=== PATIENT | male | born 1965 | race Caucasian/White ===

== ENCOUNTER → 2020-02-04 10:59 | Outpatient (CLI) | payer OTHER, MEDICAID, SELFPAY ==
--- NOTE | 2020-02-04 | DI.RAD.S_ITS ---
PROCEDURE: XR KNEE RT 3V INDICATIONS: Knee pain TECHNIQUE: 3 views of the knee were acquired. COMPARISON: None. FINDINGS: Bones: No fractures or dislocations. No suspicious bony lesions. Mild tricompartmental knee joint degeneration. Soft tissues: No joint effusion. No suspicious soft tissue calcifications. IMPRESSION: Mild degenerative joint disease. Dictated by: Preston Dickerson M.D. on 02/04/2020 at 11:32 Approved by: Preston Dickerson M.D. on 02/04/2020 at 11:33
== END ==
PROVIDERS: PCP Student in an Organized Health Care Education/Training Program; Referring Provider Student in an Organized Health Care Education/Training Program; Visit Provider Student in an Organized Health Care Education/Training Program
DX: M25.561 Pain in right knee (principal); M17.11 Unilateral primary osteoarthritis, right knee
CPT/HCPCS: 73562

== ENCOUNTER → 2020-03-28 09:42 | Outpatient (CLI) | payer OTHER, MEDICAID, SELFPAY ==
[2020-03-29 10:38] LABS: COVID19 Sendout Not Detected (Not Detect)
== END ==
PROVIDERS: PCP Student in an Organized Health Care Education/Training Program; Visit Provider Physician Assistant
DX: Z01.812 Encounter for preprocedural laboratory examination (principal)
CPT/HCPCS: 87635

== ENCOUNTER 2020-03-31 09:58 | Day surgery (SDC) | payer OTHER, MEDICAID, SELFPAY ==
[2020-03-26 08:40] VITALS: BMI 29.7
[2020-03-31] VITALS (11 sets, daily range): BP systolic 133–182; BP diastolic 93–116; PULSE 60–75; RESP 11–28; TEMP 36.1–36.8; O2SAT 94–100; BMI 29.8
[2020-03-31] MEDS: LACTATED RINGERS 1,000 ML 100 ML IV (10:29)
--- NOTE | 2020-03-31 12:22 | PM.PREOP ---
Pre-operative Note COVID-19 COVID-19 status: Negative Result date/Date tested (Pos, Neg/Pending): 03/28/20 Interval Note History & Physical reviewed/Exam performed by Physician: Yes Changes to H&P: No
[2020-03-31] MEDS: CEFAZOLIN 2 GM/100 ML FROZ.PIGGY IV (12:50)
--- NOTE | 2020-03-31 13:07 | SUR.OPER ---
Supine on padded OR bed, head on pillow, arms secured on padded arm boards at <90 degrees abduction, legs uncrossed, safety belt at thigh, tape over blanket over lower legs.
[2020-03-31] MEDS: BUPIVACAINE 0.25% (PF) VIAL 30 ML INJ (13:11)
--- NOTE | 2020-03-31 14:04 | P.OP_ITS ---
Operative Date/Time/Diagnoses Date of procedure: 03/31/20 Time of procedure: 14:04 Pre-op diagnosis: Right inguinal hernia Post-op diagnosis: same Procedure & Clinicians Procedure: Open right inguinal hernia repair Same procedure as scheduled: Yes Indications: Symptomatic enlarging right inguinal hernia Surgeon: Jcarlos Monroe Yes if Unassisted: Yes Anesthesia Type: General Operative Notes Findings: Direct and indirect right inguinal hernia Procedure in detail: The patient was placed supine on the table and bilateral lower extremity compression devices were applied. Anesthesia was induced they were intubated with an LMA and received 2g of Ancef. A time-out was performed. They were prepped and draped in sterile fashion. The right external inguinal ring and the anterior superior iliac crest were identified and marked. 1 finger breath above the right inguinal ligament the skin was infiltrated with 0.25% bupivacaine. The skin incision was made here and the subcutaneous tissues were divided with electrocautery exposing the external oblique aponeurosis which was then opened along the direction of its fibers. The ilioinguinal nerve was identified on the anterior aspect of the cord and protected. Using a kittner cord was carefully dissected away from the inguinal canal adjacent to the pubic tubercle. The cord was freed and encircled with a Adolphus drain. A direct floor defect was identified. I identified the iliohypogastric nerve emerging through the medial aspect of the external oblique aparoneurosis. The cremasteric fibers surrounding the cord were divided using electrocautery. The vas deferens and the testicular vessels were preserved and protected. There was an indirect hernia on the anterior medial aspect of the cord which was skeletonized away from the vas deferens and testicular blood supply. The indirect hernia was skeletonized back to the internal ring and reduced spontaneously into the abdomen. A plug of Prolene mesh was placed into the floor defect and secured with Vicryl suture. I selected a 7x 15 cm lightweight Pro Loop hernia mesh. The inferior medial aspect of the mesh was anchored to the periosteum of the pubic tubercle such that there was approximately 2 cm of tubercle overlap with 0 Prolene and then was run continuously along the inferior edge of the mesh to the shelving edge of the inguinal ligament. Interrupted 3 0 Vicryl suture was used to anchor the superior aspect of the mesh to the conjoined tendon in several places. The tails were then reapproximated around the spermatic cord loosely. The tails of the mesh were then tucked under the external oblique aponeurosis. The repair was checked for hemostasis. The wound was irrigated with sterile saline. The external oblique aponeurosis was reapproximated in a running fashion using 3 0 Vicryl. The subcutaneous tissues were reapproximated with 3 0 Vicryl skin closed with 4 0 Monocryl followed by the application of Dermabond. At the end of the operation ensure that both testicles were within the scrotum. The sponge instrument count at the end operation was correct. The patient emerged from anesthesia was extubated and transferred to the postoperative care unit in stable condition. A total of 30 ml of of 0.25% bupivicaine was used to infiltrate the skin. Complications: none Post-operative Condition: stable Disposition: same day surgery
--- NOTE | 2020-03-31 14:20 | SUR.PHASEI ---
Dr. Weeks at bedside. Discussed elevated BP and patient's report that he has not taken his lisinopril in two days. Lisinopril order pending.
[2020-03-31] MEDS: lisinopriL 20 MG TABLET PO (15:02)
--- NOTE | 2020-03-31 15:13 | SUR.PHASEII ---
1505 Called into OR, reported BP and HR to Dr. Weeks and that pt states his normal diastolic BP is 100 (and that he feels that anxiety may be contributing factor). approved pt discharge at this time. IV dc'd, clothing given. Surg site CDI. Pt A&O, wants to go home. Stable and pleasant.
== END 2020-03-31 15:15 | disposition home or self-care (01) ==
PROVIDERS: PCP Student in an Organized Health Care Education/Training Program; Referring Provider Surgery; Visit Provider Surgery
PROC: (CPT 49505; principal; 2020-03-31 11:15)
DX: K40.90 Unilateral inguinal hernia, without obstruction or gangrene, not specified as recurrent (principal); I10 Essential (primary) hypertension
CPT/HCPCS: 49505; C1781; J0690; J1100; J1885; J2405; J2704; J3010

== ENCOUNTER → 2021-07-14 09:36 | Outpatient (CLI) | payer OTHER, MEDICAID, SELFPAY ==
--- NOTE | 2021-07-14 | DI.US.S_ITS ---
PROCEDURE: US ABDOMEN LIMITED INDICATIONS: ELEVATED LIVER ENZYMES. ATTENTION LIVER AND SPLEEN. TECHNIQUE: Real-time focused scanning was performed of the abdomen, with image documentation. COMPARISON: None. FINDINGS: The liver demonstrates mildly prominent size. The liver demonstrates generalized moderately increased echogenicity. This decreases ultrasound sensitivity for detection of hepatic masses. No findings of gallstones or sludge are seen. The gallbladder wall is not thickened, measuring 3 mm or less. No specific pericholecystic fluid is seen. The sonographic Menendez sign is negative. The biliary ducts and the pancreas are not well seen. The spleen appears within normal limits, measuring 10.5 cm in length. IMPRESSION: The liver demonstrates increased echogenicity. This finding is nonspecific, yet it is most commonly attributed to fatty infiltration. No significant splenic abnormality is seen. Unremarkable gallbladder by ultrasound. Limited evaluation of the biliary ducts and the pancreas. Dictated by: Delta French M.D. on 07/14/2021 at 12:11 Approved by: Delta French M.D. on 07/14/2021 at 12:13
== END ==
PROVIDERS: PCP Student in an Organized Health Care Education/Training Program; Referring Provider Student in an Organized Health Care Education/Training Program; Visit Provider Student in an Organized Health Care Education/Training Program
DX: R74.8 Abnormal levels of other serum enzymes (principal)
CPT/HCPCS: 76705

== ENCOUNTER → 2022-01-24 11:20 | Outpatient (CLI) | payer OTHER, MEDICAID, SELFPAY ==
[2022-01-24 13:11] LABS: COVID19 -Nasal RAPID Negative (Negative)
== END ==
PROVIDERS: PCP Student in an Organized Health Care Education/Training Program; Visit Provider Family Medicine Sleep Medicine
DX: Z20.822 Contact with and (suspected) exposure to COVID-19 (principal)
CPT/HCPCS: 87635; C9803

== ENCOUNTER 2022-01-25 14:05 | Day surgery (SDC) | payer OTHER, MEDICAID, SELFPAY ==
--- NOTE | 2022-01-25 12:37 | PM.HP.1 ---
History of Present Illness History of Present Illness Date Patient Seen: 01/25/22 Chief complaint: SDC Narrative: 56 year old male comes in today for consideration of a screening colonoscopy. There have been no lower GI symptoms suggesting disease such as change in bowel habits, bleeding, abdominal pain or anemia. There's been no family history of colon cancer or colon polyps. Overall health issues have been stable, including no major cardiac events for at least 6 weeks. PCP: Dr. Borjas Past Medical History: PSORIASIS PAIN, FOOT, RIGHT ALLERGY ROSACEA Hypertension Hyperlipidemia Ingrown toenail Past Surgical History: none Family History: Adopted Social History: Marital Status: Single Occupation: Moved from [place] over a decade ago, currently unemployed. I manage my money but need to get into a regular job. History of heavy drinking, nothing recently. Patient History Medical History (Updated 09/13/21 @ 07:35 by RAFAELA Mccain) Anxiety Eczema HTN (hypertension) Psoriasis Surgical History (Updated 01/25/22 @ 14:41 by Margoth Galeano RN) H/O right inguinal hernia repair Family & Social History Social History: household members none Tobacco & Substance use: Smoking Status Never smoker alcohol intake former Substance Use Type does not use Meds Home Medications and Allergies Home Medications Medication Instructions Recorded Confirmed Type lisinopril 40 mg tablet 40 mg PO DAILY 01/25/22 01/25/22 History Allergies Allergy/AdvReac Type Severity Reaction Status Date / Time chicken derived Allergy Intermediate Hives, Verified 01/25/22 14:37 swelling, turkey AdvReac Intermediate Vomiting, Verified 01/25/22 14:37 Hives, swelling Review of Systems Review of Systems Narrative: All remaining ROS were reviewed and negative except as addressed. Exam Narrative Exam Narrative: GENERAL: Alert and oriented, appearing stated age and in no acute distress. HEENT: Head normocephalic/atraumatic. Extraocular movements intact. LUNGS: Clear to ausculation bilaterally, no wheezes, rhonchi or rales. CV: Normal S1 and S2 with regular rate and rhythm, no audible murmurs, rubs or gallops. ABDOMEN: Soft, non-tender, non-distended, no organomegaly. Positive bowel sounds. EXTREMITIES: No clubbing, cyanosis, or edema. NEURO: Cranial nerves II through XII grossly intact, no focal deficits. PSYCH: Alert and oriented x 3. SKIN: No concerning lesions. Assessment & Plan Assessment & Plan narrative: 1. Screening for colon cancer Plan for colonoscopy. The nature and character of the procedure as well as anticipated results were discussed. The possibility of not completing the procedure was also discussed. Possible complications including aspiration pneumonia, bleeding, perforation and reaction to medications either for sedation or preparation and missed lesions were discussed. Questions were answered and proceeding to the colonoscopy was elected. Informed consent signed. I sincerely appreciate the referral allowing me to participate in this patient's care. Please contact me with any questions or concerns.
--- NOTE | 2022-01-25 12:40 | PM.OP.COLON ---
Operative Date/Time/Diagnoses Date of procedure: 01/25/22 Procedure Notes SCOAP/Timeout: 3:31 p.m. Procedure in detail: ENDOSCOPIST: Tamika Borjas MD Sedation RN: Pallavi Bowie RN Sedation start time: 3:32 p.m. Sedation end time: 3:44 p.m. PROCEDURE: Colonoscopy INDICATIONS: 1. Screening for colon cancer MEDICATION: Levsin 0.125 mg sublingual, incremental doses of Versed and fentanyl until appropriate level sedation achieved. ASA CLASS: 2 CECAL WITHDRAWAL TIME: 6 minutes COMPLICATIONS: None. EXTENT OF PROCEDURE: Cecum. QUALITY OF PREP: Good with portions of liquid stool. PROCEDURE: Prior to insertion of the colonoscope, a digital rectal examination was accomplished with circumferential palpation of the distal rectal mucosa without significant findings being noted. The high-definition colonoscope was passed into the rectum in the usual fashion and advanced over to the cecum without difficulty. The ileocecal valve, appendiceal stoma, and medial wall all could be inspected and no abnormalities were seen. ASCENDING COLON: As the colonoscope was withdrawn, care was taken to expose and inspect the haustral folds and no abnormalities were seen. HEPATIC FLEXURE: Normal, no polyps, diverticula or other abnormalities. TRANSVERSE COLON: Normal, no polyps, diverticula or other abnormalities. DESCENDING COLON: Normal, no polyps, diverticula or other abnormalities. SIGMOID COLON: Normal, no polyps, diverticula or other abnormalities. RECTUM: Normal. J maneuver was produced. There was no significant perianal disease. The J maneuver was broken. The remainder of the rectum was inspected and there was no external hemorrhoid disease. The scope was withdrawn. IMPRESSION: 1. Normal colonoscopy PLAN: 1. Repeat colonoscopy in 10 years. The possibility of a missed lesion including a malignancy has been discussed with the patient previously. Potential alarm symptoms have been discussed and should be reported immediately.
[2022-01-25 14:20] VITALS: BMI 30.5
[2022-01-25] MEDS: LACTATED RINGERS 1,000 ML 200 ML IV (14:28)
[2022-01-25] MEDS: HYOSCYAMINE 0.125 MG TABLET PO (14:28)
[2022-01-25 14:30] VITALS: BP 157/100; PULSE 65; RESP 16; TEMP 36.6; O2SAT 98
[2022-01-25] MEDS: fentaNYL 250 MCG/5 ML INJ 150 MCG IV (15:52)
[2022-01-25 15:53] VITALS: BP 110/83; PULSE 78; RESP 12; TEMP 36.8; O2SAT 92
[2022-01-25] MEDS: MIDAZOLAM 5 MG/5 ML VIAL 6 MG IV (15:55)
[2022-01-25 15:58] VITALS: BP 119/83; PULSE 68; RESP 12; O2SAT 93
[2022-01-25 16:04] VITALS: BP 115/86; PULSE 65; RESP 12; O2SAT 95
== END 2022-01-25 16:17 | disposition home or self-care (01) ==
PROVIDERS: PCP Student in an Organized Health Care Education/Training Program; Referring Provider Student in an Organized Health Care Education/Training Program; Visit Provider Student in an Organized Health Care Education/Training Program
PROC: 0DJD8ZZ Inspection of Lower Intestinal Tract, Via Natural or Artificial Opening Endoscopic (ICD-10-PCS; CPT 45378; principal; 2022-01-25 15:15)
DX: Z12.11 Encounter for screening for malignant neoplasm of colon (principal)
CPT/HCPCS: 45378; J2250; J3010

== ENCOUNTER → 2022-02-09 09:08 | Outpatient (CLI) | payer OTHER, MEDICAID, SELFPAY ==
--- NOTE | 2022-02-09 | DI.RAD.S_ITS ---
PROCEDURE: XR CERVICAL SPINE 2V OR 3V INDICATIONS: NECK PAIN TECHNIQUE: 3 view(s) of the cervical spine were acquired. COMPARISON: None. FINDINGS: Bones: No fractures or dislocations to the C7-T1 level. The lateral masses of C1 appear intact on the odontoid view. No suspicious bony lesions. Moderate to severe disc space narrowing is present C6-7, mild to moderate C5-6. Bridging anterior osteophytes are present at this level. Multilevel uncovertebral hypertrophy are present. Soft tissues: No prevertebral soft tissue swelling. IMPRESSION: Degenerative changes most notable at C5-6 and C6-7. Dictated by: Kathrine Keita M.D. on 02/09/2022 at 17:25 Approved by: Kathrine Keita M.D. on 02/09/2022 at 17:26
== END ==
PROVIDERS: PCP Student in an Organized Health Care Education/Training Program; Referring Provider Student in an Organized Health Care Education/Training Program; Visit Provider Student in an Organized Health Care Education/Training Program
DX: M54.2 Cervicalgia (principal); M47.812 Spondylosis without myelopathy or radiculopathy, cervical region
CPT/HCPCS: 72040

== ENCOUNTER 2022-05-12 14:30 | Outpatient (RCR) | payer OTHER, MEDICAID, SELFPAY ==
--- NOTE | 2022-04-05 16:00 | PT.OIE ---
Current Diagnoses Cervicalgia (04/05/22) Past Medical History (Last Updated 03/30/20 @ 12:57 by Piedad Boone, NAKUL) Anxiety Eczema HTN (hypertension) Psoriasis Past Surgical History (Last Updated 01/25/22 @ 14:41 by Margoth Galeano RN) H/O right inguinal hernia repair Visit Care Team Role Provider Type Tamika Borjas MD Attending Provider Physician Primary Care Provider Referring Provider Specialty: [facility] Address: [address] [place] [address], [facility] [place], [facility] Email: [email or web address] Physical Therapy Initial Evaluation PT-OP-A Visit Information Start: 04/05/22 07:28 Freq: Status: Active Protocol: Document 04/05/22 13:03 AMB (Rec: 04/05/22 13:19 AMB [id number]) Out-Patient Physical Therapy Visit Information Visit Information Visit Type Initial Evaluation Visit Start Time 13:00 Visit Stop Time 13:45 Total Visit Minutes 45 Visit Number 1 PT-OP-B Current Condition Start: 04/05/22 07:28 Freq: Status: Active Protocol: Document 04/05/22 13:03 AMB (Rec: 04/05/22 13:19 AMB [id number]) Current Condition History of Current Condition Onset Date October Current Complaints neck pain History of Current Condition Rebuild [facility] in October and that worsened chronic neck pain. Stiffness in neck with rotation and sleeping are a big problem. Does have a history of shoulder separation years ago, but denies numbness/tingling/radiating sx . Did have an X-ray in January, shows Degenerative changes most notable at C5-6 and C6-7. - moderate to severe at C6-C7 . Prior Functional Status Baseline Function- ADL's Independent Baseline Function- Mobility Independent Current Functional Impairments (Reported) Functional Limitations- ADL's limited sleeping, driving, reading, watching TV Personal Factors Other Personal Factors That May Effect Hypertension, back pain, Therapy/Recovery history R shoulder separation PT-OP-C Subjective Start: 04/05/22 07:28 Freq: Status: Active Protocol: Document 04/05/22 13:00 AMB (Rec: 04/06/22 07:30 AMB [id number]) Patient Questionnaires Neck Disability Index NDI Score 13 Neck Disability Index Impairment 20 to 39% Impaired (Score 10- 19) Quick Dash- Upper Extremity Quick Dash UE Score 11 Quick Dash UE Impairment 1 to 19% Impaired (Score 1-19) OP-PT Pain Assessment Comments Pain Comments 4/10 upper neck pain PT-OP-J Posture/Palpation/Skin Start: 04/05/22 07:28 Freq: Status: Active Protocol: Document 04/05/22 13:00 AMB (Rec: 04/06/22 07:30 AMB [id number]) Posture Evaluation Comments Posture Comments forward shoulders, significant forward head Palpation Assessment Location One Palpation Location neck Palpation Findings Soft Tissue Tightness,Spasm, Muscle Guarding,Tenderness Palpation Details tension at R UT with R rotation, subocciptial muscle spasm PT-OP-K Range of Motion Start: 04/05/22 07:28 Freq: Status: Active Protocol: Document 04/05/22 13:00 AMB (Rec: 04/06/22 07:30 AMB [id number]) Cervical Spine Range of Motion Cervical Spine Active Degrees Testing Position Sitting Flexion 70 Extension 60 Rotation Left 72 Rotation Right 45 Lateral Flexion Left 40 Lateral Flexion Right 40 PT-OP-M Strength Start: 04/05/22 07:28 Freq: Status: Active Protocol: Document 04/05/22 13:00 AMB (Rec: 04/06/22 07:30 AMB [id number]) Shoulder Strength Shoulder Manual Muscle Testing Right Comments WFL, film numberer strength WFL PT-OP-T Assessment and Plan Start: 04/05/22 07:28 Freq: Status: Active Protocol: Document 04/05/22 13:00 AMB (Rec: 04/06/22 07:30 AMB [id number]) Physical Therapy Assessment Rehab Potential Rehabilitation Potential Good Evaluation Complexity Number of Personal Factors/Comorbidities 1-2 Number of Body Systems Impaired 4 or More Clinical Presentation at Evaluation Stable Impairments Impairments Functional Activities,Pain, Posture,ROM Goals Two Impairment Pain Short Term Goal (STG) Messi will sleep for 6 hours without waking due to neck pain. STG Duration 4 weeks [employer] Goal (LTG) Messi will work on his laptop for 1 hour with 2/10 neck pain or less. LTG Duration 8 weeks One Impairment ROM Short Term Goal (STG) Messi will improve his cervical rotation right to 60 degrees. STG Duration 4 weeks [employer] Goal (LTG) Messi will turn his head while driving without an increase in neck pain. LTG Duration 8 weeks Assessment Summary Assessment Messi attends physical therapy with restricted right cervical rotation 7 months s/p deck renovation that increased his neck pain, especially with ended positions like watching TV, working on the laptop, and sleeping. He has known degeneration worst at C6-7 seen on recent X-ray but does not have radiating symptoms. He has poor posture and will benefit from physical therapy for manual therapy, strengthening and stretching so that he can attain better posture to put less strain on his cervical spine. Physical Therapy Plan Frequency and Duration Frequency of Treatment 2x/Week Duration of Treatment 8 weeks Plan of Care Start Date 04/05/22 Plan of Care End Date 05/31/22 Therapeutic Interventions Therapeutic Interventions Home Exercise Program,Joint Mobilizations,Manual Therapy, Neuromuscular Re-education, Self-Care/Home Management,Soft Tissue Mobilization, Therapeutic Activities, Therapeutic Exercises Modalities Cold Pack/Ice Massage,Electric Stimulation,Hot Packs, Vasopneumatic Devices Next Visit Focus/Plan Next Note Type Treatment Note Next Visit Plan Review sleep positioning education/ body mechanics. Progress manual therapy for R cervical rotation ROM. Chin tucks, pec stretch to promote improved posture.
--- NOTE | 2022-04-05 16:00 | PT.OPPOC ---
Physical, Occupational & Speech Therapy At [facility] Current Diagnoses Cervicalgia (04/05/22) Visit Care Team Role Provider Type Tamika Borjas MD Attending Provider Physician Primary Care Provider Referring Provider Specialty: Family Practice Address: [address] [place] [address], [facility] [place], [address] Email: [email or web address] Plan Of Care PT-OP-T Assessment and Plan Start: 04/05/22 07:28 Freq: Status: Active Protocol: Document 04/05/22 13:00 AMB (Rec: 04/06/22 07:30 AMB [id number]) Physical Therapy Assessment Rehab Potential Rehabilitation Potential Good Evaluation Complexity Number of Personal Factors/Comorbidities 1-2 Number of Body Systems Impaired 4 or More Clinical Presentation at Evaluation Stable Impairments Impairments Functional Activities,Pain, Posture,ROM Goals Two Impairment Pain Short Term Goal (STG) Messi will sleep for 6 hours without waking due to neck pain. STG Duration 4 weeks [facility] Goal (LTG) Messi will work on his laptop for 1 hour with 2/10 neck pain or less. LTG Duration 8 weeks One Impairment ROM Short Term Goal (STG) Messi will improve his cervical rotation right to 60 degrees. STG Duration 4 weeks [facility] Goal (LTG) Messi will turn his head while driving without an increase in neck pain. LTG Duration 8 weeks Assessment Summary Assessment Messi attends physical therapy with restricted right cervical rotation 7 months s/p deck renovation that increased his neck pain, especially with ended positions like watching TV, working on the laptop, and sleeping. He has known degeneration worst at C6-7 seen on recent X-ray but does not have radiating symptoms. He has poor posture and will benefit from physical therapy for manual therapy, strengthening and stretching so that he can attain better posture to put less strain on his cervical spine. Physical Therapy Plan Frequency and Duration Frequency of Treatment 2x/Week Duration of Treatment 8 weeks Plan of Care Start Date 04/05/22 Plan of Care End Date 05/31/22 Therapeutic Interventions Therapeutic Interventions Home Exercise Program,Joint Mobilizations,Manual Therapy, Neuromuscular Re-education, Self-Care/Home Management,Soft Tissue Mobilization, Therapeutic Activities, Therapeutic Exercises Modalities Cold Pack/Ice Massage,Electric Stimulation,Hot Packs, Vasopneumatic Devices Next Visit Focus/Plan Next Note Type Treatment Note Next Visit Plan Review sleep positioning education/ body mechanics. Progress manual therapy for R cervical rotation ROM. Ricky mccraryckbarb, pec stretch to promote improved posture. Plan of Care Dates Plan of Care Start Date 04/05/22 Plan of Care End Date 05/31/22 Electronically Signed by: Rosi Kiran, JESS 04/06/22 0813 If you are in agreement with this Plan of Care, please return a signed and dated copy. I have reviewed this Plan of Care and certify that the skilled therapy services above are required to meet the patient?s needs. Physician Signature Date Printed Name and Credentials Clinical Instructor Signature Printed Name and Credentials
--- NOTE | 2022-04-08 13:18 | PT.OTN ---
Current Diagnoses Cervicalgia (04/08/22) Physical Therapy Treatment Note PT-OP-A Visit Information Start: 04/05/22 07:28 Freq: Status: Active Protocol: Document 04/08/22 09:00 AMB (Rec: 04/08/22 09:47 AMB [id number]) Out-Patient Physical Therapy Visit Information Visit Information Visit Type Treatment Note Visit Start Time 09:00 Visit Stop Time 09:45 Total Visit Minutes 45 Visit Number 2 PT-OP-B Current Condition Start: 04/05/22 07:28 Freq: Status: Active Protocol: Document 04/05/22 13:03 AMB (Rec: 04/05/22 13:19 AMB [id number]) Current Condition History of Current Condition Onset Date October Current Complaints neck pain History of Current Condition Rebuild deck in October and that worsened chronic neck pain. Stiffness in neck with rotation and sleeping are a big problem. Does have a history of shoulder seperation years ago, but denies numbness/tingling/radiating sx . Did have an X-ray in January, shows Degenerative changes most notable at C5-6 and C6-7. - moderate to severe at C6-C7 . Prior Functional Status Baseline Function- ADL's Independent Baseline Function- Mobility Independent Current Functional Impairments (Reported) Functional Limitations- ADL's limited sleeping, driving, reading, watching TV Personal Factors Other Personal Factors That May Effect Hypertension, back pain, Therapy/Recovery history R shoulder separation PT-OP-C Subjective Start: 04/05/22 07:28 Freq: Status: Active Protocol: Document 04/08/22 09:00 AMB (Rec: 04/08/22 09:47 AMB [id number]) OP-PT Subjective Patient Comments Patient Comments Messi is pretty stiff this morning. PT-OP-J Posture/Palpation/Skin Start: 04/05/22 07:28 Freq: Status: Active Protocol: Document 04/05/22 13:00 AMB (Rec: 04/06/22 07:30 AMB [id number]) Posture Evaluation Comments Posture Comments forward shoulders, significant forward head Palpation Assessment Location One Palpation Location neck Palpation Findings Soft Tissue Tightness,Spasm, Muscle Guarding,Tenderness Palpation Details tension at R UT with R rotation, subocciptial muscle spasm PT-OP-K Range of Motion Start: 04/05/22 07:28 Freq: Status: Active Protocol: Document 04/05/22 13:00 AMB (Rec: 04/06/22 07:30 AMB [id number]) Cervical Spine Range of Motion Cervical Spine Active Degrees Testing Position Sitting Flexion 70 Extension 60 Rotation Left 72 Rotation Right 45 Lateral Flexion Left 40 Lateral Flexion Right 40 PT-OP-M Strength Start: 04/05/22 07:28 Freq: Status: Active Protocol: Document 04/05/22 13:00 AMB (Rec: 04/06/22 07:30 AMB [id number]) Shoulder Strength Shoulder Manual Muscle Testing Right Comments WFL, 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 strength WFL PT-OP-Q Treatments Start: 04/05/22 07:28 Freq: Status: Active Protocol: Document 04/08/22 09:00 AMB (Rec: 04/08/22 09:47 AMB [id number]) Therapeutic Exercises Supine Exercises chin tuck Reps/Minutes 5x5 Sitting Exercises UT stretch Reps/Minutes 30x2 Standing Exercises corner pec stretch Side bilateral Reps/Minutes 30x4 Manual Therapy Treatment Soft Tissue Mobilization suboccipital release Body Location neck Joint Mobilizations MWM right rotation Joint neck Other Other Manual Treatments contract relax cervical rotation (R) PT-OP-T Assessment and Plan Start: 04/05/22 07:28 Freq: Status: Active Protocol: Document 04/08/22 09:00 AMB (Rec: 04/08/22 09:47 AMB [id number]) Physical Therapy Assessment Goals Two Impairment Pain Short Term Goal (STG) Messi will sleep for 6 hours without waking due to neck pain. STG Duration 4 weeks Senior Living Goal (LTG) Messi will work on his laptop for 1 hour with 2/10 neck pain or less. LTG Duration 8 weeks One Impairment ROM Short Term Goal (STG) Messi will improve his cervical rotation right to 60 degrees. STG Duration 4 weeks Senior Living Goal (LTG) Messi will turn his head while driving without an increase in neck pain. LTG Duration 8 weeks Assessment Summary Assessment Messi did well with PT, did have some stiffness to begin with, but ROM improved throughout session. Physical Therapy Plan Next Visit Focus/Plan Next Note Type Treatment Note Next Visit Plan Review chin tucks, pec stretch , cervical rotation, consider UBE for warm up
--- NOTE | 2022-04-15 09:45 | PT.OTN ---
Current Diagnoses Cervicalgia (04/15/22) Physical Therapy Treatment Note PT-OP-A Visit Information Start: 04/05/22 07:28 Freq: Status: Active Protocol: Document 04/15/22 09:01 AMB (Rec: 04/15/22 09:45 AMB [id number]) Out-Patient Physical Therapy Visit Information Visit Information Visit Type Treatment Note Visit Start Time 09:00 Visit Stop Time 09:45 Total Visit Minutes 45 Visit Number 3 PT-OP-B Current Condition Start: 04/05/22 07:28 Freq: Status: Active Protocol: Document 04/05/22 13:03 AMB (Rec: 04/05/22 13:19 AMB [id number]) Current Condition History of Current Condition Onset Date October Current Complaints neck pain History of Current Condition Rebuild deck in October and that worsened chronic neck pain. Stiffness in neck with rotation and sleeping are a big problem. Does have a history of shoulder seperation years ago, but denies numbness/tingling/radiating sx . Did have an X-ray in January, shows Degenerative changes most notable at C5-6 and C6-7. - moderate to severe at C6-C7 . Prior Functional Status Baseline Function- ADL's Independent Baseline Function- Mobility Independent Current Functional Impairments (Reported) Functional Limitations- ADL's limited sleeping, driving, reading, watching TV Personal Factors Other Personal Factors That May Effect Hypertension, back pain, Therapy/Recovery history R shoulder separation PT-OP-C Subjective Start: 04/05/22 07:28 Freq: Status: Active Protocol: Document 04/15/22 09:01 AMB (Rec: 04/15/22 09:45 AMB [id number]) OP-PT Subjective Patient Comments Patient Comments Did feel a bit of soreness after last visit for about a half an hour PT-OP-J Posture/Palpation/Skin Start: 04/05/22 07:28 Freq: Status: Active Protocol: Document 04/05/22 13:00 AMB (Rec: 04/06/22 07:30 AMB [id number]) Posture Evaluation Comments Posture Comments forward shoulders, significant forward head Palpation Assessment Location One Palpation Location neck Palpation Findings Soft Tissue Tightness,Spasm, Muscle Guarding,Tenderness Palpation Details tension at R UT with R rotation, subocciptial muscle spasm PT-OP-K Range of Motion Start: 04/05/22 07:28 Freq: Status: Active Protocol: Document 04/05/22 13:00 AMB (Rec: 04/06/22 07:30 AMB [id number]) Cervical Spine Range of Motion Cervical Spine Active Degrees Testing Position Sitting Flexion 70 Extension 60 Rotation Left 72 Rotation Right 45 Lateral Flexion Left 40 Lateral Flexion Right 40 PT-OP-M Strength Start: 04/05/22 07:28 Freq: Status: Active Protocol: Document 04/05/22 13:00 AMB (Rec: 04/06/22 07:30 AMB [id number]) Shoulder Strength Shoulder Manual Muscle Testing Right Comments WFL, meals on wheels driver strength WFL PT-OP-Q Treatments Start: 04/05/22 07:28 Freq: Status: Active Protocol: Document 04/15/22 09:01 AMB (Rec: 04/15/22 09:45 AMB [id number]) Cardio Equipment Recumbent Elliptical ([employer]) Duration (Minutes) 10 Resistance 5 Therapeutic Exercises Supine Exercises chin tuck Reps/Minutes 5x5 Sidelying Exercises open book Reps/Minutes 10x2 Sitting Exercises UT stretch Reps/Minutes 30x2 Standing Exercises corner pec stretch Side bilateral Reps/Minutes 30x4 Manual Therapy Treatment Soft Tissue Mobilization suboccipital release Body Location neck Joint Mobilizations MWM right rotation Joint neck PT-OP-T Assessment and Plan Start: 04/05/22 07:28 Freq: Status: Active Protocol: Document 04/15/22 09:01 AMB (Rec: 04/15/22 09:45 AMB [id number]) Physical Therapy Assessment Goals Two Impairment Pain Short Term Goal (STG) Messi will sleep for 6 hours without waking due to neck pain. STG Duration 4 weeks Plain Clothes Police Officer Goal (LTG) Messi will work on his laptop for 1 hour with 2/10 neck pain or less. LTG Duration 8 weeks One Impairment ROM Short Term Goal (STG) Messi will improve his cervical rotation right to 60 degrees. STG Duration 4 weeks Plain Clothes Police Officer Goal (LTG) Messi will turn his head while driving without an increase in neck pain. LTG Duration 8 weeks Assessment Summary Assessment Messi did well with open book, better with chin tuck today. Better range after manual. Physical Therapy Plan Next Visit Focus/Plan Next Note Type Treatment Note Next Visit Plan Review chin tucks, pec stretch , cervical rotation, consider UBE for warm up
--- NOTE | 2022-04-18 15:42 | PT.OTN ---
Current Diagnoses Cervicalgia (04/18/22) Physical Therapy Treatment Note PT-OP-A Visit Information Start: 04/05/22 07:28 Freq: Status: Active Protocol: Document 04/18/22 13:49 AMB (Rec: 04/18/22 14:35 AMB [id number]) Out-Patient Physical Therapy Visit Information Visit Information Visit Type Treatment Note Visit Start Time 13:45 Visit Stop Time 14:30 Total Visit Minutes 45 Visit Number 4 PT-OP-B Current Condition Start: 04/05/22 07:28 Freq: Status: Active Protocol: Document 04/05/22 13:03 AMB (Rec: 04/05/22 13:19 AMB [id number]) Current Condition History of Current Condition Onset Date October Current Complaints neck pain History of Current Condition Rebuild deck in October and that worsened chronic neck pain. Stiffness in neck with rotation and sleeping are a big problem. Does have a history of shoulder seperation years ago, but denies numbness/tingling/radiating sx . Did have an X-ray in January, shows Degenerative changes most notable at C5-6 and C6-7. - moderate to severe at C6-C7 . Prior Functional Status Baseline Function- ADL's Independent Baseline Function- Mobility Independent Current Functional Impairments (Reported) Functional Limitations- ADL's limited sleeping, driving, reading, watching TV Personal Factors Other Personal Factors That May Effect Hypertension, back pain, Therapy/Recovery history R shoulder separation PT-OP-C Subjective Start: 04/05/22 07:28 Freq: Status: Active Protocol: Document 04/18/22 13:49 AMB (Rec: 04/18/22 14:35 AMB [id number]) OP-PT Subjective Patient Comments Patient Comments Feeling overall mildly better, has been doing HEP PT-OP-J Posture/Palpation/Skin Start: 04/05/22 07:28 Freq: Status: Active Protocol: Document 04/05/22 13:00 AMB (Rec: 04/06/22 07:30 AMB [id number]) Posture Evaluation Comments Posture Comments forward shoulders, significant forward head Palpation Assessment Location One Palpation Location neck Palpation Findings Soft Tissue Tightness,Spasm, Muscle Guarding,Tenderness Palpation Details tension at R UT with R rotation, subocciptial muscle spasm PT-OP-K Range of Motion Start: 04/05/22 07:28 Freq: Status: Active Protocol: Document 04/05/22 13:00 AMB (Rec: 04/06/22 07:30 AMB [id number]) Cervical Spine Range of Motion Cervical Spine Active Degrees Testing Position Sitting Flexion 70 Extension 60 Rotation Left 72 Rotation Right 45 Lateral Flexion Left 40 Lateral Flexion Right 40 PT-OP-M Strength Start: 04/05/22 07:28 Freq: Status: Active Protocol: Document 04/05/22 13:00 AMB (Rec: 04/06/22 07:30 AMB [id number]) Shoulder Strength Shoulder Manual Muscle Testing Right Comments WFL, 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 control 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 strength WFL PT-OP-Q Treatments Start: 04/05/22 07:28 Freq: Status: Active Protocol: Document 04/18/22 13:49 AMB (Rec: 04/18/22 14:35 AMB [id number]) Therapeutic Exercises Supine Exercises chin tuck Reps/Minutes 5x5 Sidelying Exercises open book Reps/Minutes 10x2 Sitting Exercises UT stretch Reps/Minutes 30x2 Other Exercises cat cow Reps/Minutes 10 thread the needle Reps/Minutes 10 Manual Therapy Treatment Soft Tissue Mobilization suboccipital release Body Location neck Comments 10 min Joint Mobilizations MWM right rotation Joint neck Reps/Duration 3x10 PT-OP-T Assessment and Plan Start: 04/05/22 07:28 Freq: Status: Active Protocol: Document 04/18/22 13:49 AMB (Rec: 04/18/22 14:35 AMB [id number]) Physical Therapy Assessment Goals Two Impairment Pain Short Term Goal (STG) Messi will sleep for 6 hours without waking due to neck pain. STG Duration 4 weeks Desk Reporter Goal (LTG) Messi will work on his laptop for 1 hour with 2/10 neck pain or less. LTG Duration 8 weeks One Impairment ROM Short Term Goal (STG) Messi will improve his cervical rotation right to 60 degrees. STG Duration 4 weeks Desk Reporter Goal (LTG) Messi will turn his head while driving without an increase in neck pain. LTG Duration 8 weeks Assessment Summary Assessment Pt did well with thread the needle. Is focused on getting a HEP to manage this condition in the nursing home. Physical Therapy Plan Next Visit Focus/Plan Next Note Type Treatment Note Next Visit Plan Review chin tucks, pec stretch , cervical rotation, consider cervical stabilization next visit
--- NOTE | 2022-04-20 15:57 | PT.OTN ---
Current Diagnoses Cervicalgia (04/20/22) Physical Therapy Treatment Note PT-OP-A Visit Information Start: 04/05/22 07:28 Freq: Status: Active Protocol: Document 04/20/22 09:49 AMB (Rec: 04/20/22 10:31 AMB [id number]) Out-Patient Physical Therapy Visit Information Visit Information Visit Type Treatment Note Visit Start Time 09:45 Visit Stop Time 10:30 Total Visit Minutes 45 Visit Number 5 PT-OP-B Current Condition Start: 04/05/22 07:28 Freq: Status: Active Protocol: Document 04/05/22 13:03 AMB (Rec: 04/05/22 13:19 AMB [id number]) Current Condition History of Current Condition Onset Date October Current Complaints neck pain History of Current Condition Rebuild deck in October and that worsened chronic neck pain. Stiffness in neck with rotation and sleeping are a big problem. Does have a history of shoulder seperation years ago, but denies numbness/tingling/radiating sx . Did have an X-ray in January, shows Degenerative changes most notable at C5-6 and C6-7. - moderate to severe at C6-C7 . Prior Functional Status Baseline Function- ADL's Independent Baseline Function- Mobility Independent Current Functional Impairments (Reported) Functional Limitations- ADL's limited sleeping, driving, reading, watching TV Personal Factors Other Personal Factors That May Effect Hypertension, back pain, Therapy/Recovery history R shoulder separation PT-OP-C Subjective Start: 04/05/22 07:28 Freq: Status: Active Protocol: Document 04/20/22 09:45 AMB (Rec: 04/20/22 15:56 AMB [id number]) OP-PT Subjective Patient Comments Patient Comments Pt was a bit sore on the right side of ht eneck after last visit. PT-OP-J Posture/Palpation/Skin Start: 04/05/22 07:28 Freq: Status: Active Protocol: Document 04/05/22 13:00 AMB (Rec: 04/06/22 07:30 AMB [id number]) Posture Evaluation Comments Posture Comments forward shoulders, significant forward head Palpation Assessment Location One Palpation Location neck Palpation Findings Soft Tissue Tightness,Spasm, Muscle Guarding,Tenderness Palpation Details tension at R UT with R rotation, subocciptial muscle spasm PT-OP-K Range of Motion Start: 04/05/22 07:28 Freq: Status: Active Protocol: Document 04/05/22 13:00 AMB (Rec: 04/06/22 07:30 AMB [id number]) Cervical Spine Range of Motion Cervical Spine Active Degrees Testing Position Sitting Flexion 70 Extension 60 Rotation Left 72 Rotation Right 45 Lateral Flexion Left 40 Lateral Flexion Right 40 PT-OP-M Strength Start: 04/05/22 07:28 Freq: Status: Active Protocol: Document 04/05/22 13:00 AMB (Rec: 04/06/22 07:30 AMB [id number]) Shoulder Strength Shoulder Manual Muscle Testing Right Comments 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, 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 strength WFL PT-OP-Q Treatments Start: 04/05/22 07:28 Freq: Status: Active Protocol: Document 04/20/22 09:45 AMB (Rec: 04/20/22 15:56 AMB [id number]) Therapeutic Exercises Supine Exercises chin tuck Reps/Minutes 5x5 Sitting Exercises UT stretch Reps/Minutes 30x2 Other Exercises I,Y Other Exercise Name chest on t ball, cues for neck positioinng Reps/Minutes 2x10 Manual Therapy Treatment Soft Tissue Mobilization suboccipital release Body Location neck Joint Mobilizations UPA Joint for L rotated C2-3 Grade III Body Position Supine MWM right rotation Joint neck Reps/Duration 3x10 PT-OP-T Assessment and Plan Start: 04/05/22 07:28 Freq: Status: Active Protocol: Document 04/20/22 09:49 AMB (Rec: 04/20/22 10:31 AMB [id number]) Physical Therapy Assessment Goals Two Impairment Pain Short Term Goal (STG) Messi will sleep for 6 hours without waking due to neck pain. STG Duration 4 weeks Bowling Ball Patcher Goal (LTG) Messi will work on his laptop for 1 hour with 2/10 neck pain or less. LTG Duration 8 weeks One Impairment ROM Short Term Goal (STG) Messi will improve his cervical rotation right to 60 degrees. STG Duration 4 weeks Bowling Ball Patcher Goal (LTG) Messi will turn his head while driving without an increase in neck pain. LTG Duration 8 weeks Assessment Summary Assessment Messi did have increased tenderness today at R upper cervical spine. ROM after manual was 60 degrees R rotation, significant improvement from eval, but not yet equal to other side.
--- NOTE | 2022-04-26 16:01 | PT.OTN ---
Current Diagnoses Cervicalgia (04/26/22) Physical Therapy Treatment Note PT-OP-A Visit Information Start: 04/05/22 07:28 Freq: Status: Active Protocol: Document 04/26/22 13:00 AMB (Rec: 04/26/22 13:49 AMB [id number]) Out-Patient Physical Therapy Visit Information Visit Information Visit Type Treatment Note Visit Start Time 13:00 Visit Stop Time 13:45 Total Visit Minutes 45 Visit Number 6 PT-OP-B Current Condition Start: 04/05/22 07:28 Freq: Status: Active Protocol: Document 04/05/22 13:03 AMB (Rec: 04/05/22 13:19 AMB [id number]) Current Condition History of Current Condition Onset Date October Current Complaints neck pain History of Current Condition Rebuild deck in October and that worsened chronic neck pain. Stiffness in neck with rotation and sleeping are a big problem. Does have a history of shoulder seperation years ago, but denies numbness/tingling/radiating sx . Did have an X-ray in January, shows Degenerative changes most notable at C5-6 and C6-7. - moderate to severe at C6-C7 . Prior Functional Status Baseline Function- ADL's Independent Baseline Function- Mobility Independent Current Functional Impairments (Reported) Functional Limitations- ADL's limited sleeping, driving, reading, watching TV Personal Factors Other Personal Factors That May Effect Hypertension, back pain, Therapy/Recovery history R shoulder separation PT-OP-C Subjective Start: 04/05/22 07:28 Freq: Status: Active Protocol: Document 04/26/22 13:00 AMB (Rec: 04/26/22 13:49 AMB [id number]) OP-PT Subjective Patient Comments Patient Comments Pt reports discomfort when first waking up. PT-OP-J Posture/Palpation/Skin Start: 04/05/22 07:28 Freq: Status: Active Protocol: Document 04/05/22 13:00 AMB (Rec: 04/06/22 07:30 AMB [id number]) Posture Evaluation Comments Posture Comments forward shoulders, significant forward head Palpation Assessment Location One Palpation Location neck Palpation Findings Soft Tissue Tightness,Spasm, Muscle Guarding,Tenderness Palpation Details tension at R UT with R rotation, subocciptial muscle spasm PT-OP-K Range of Motion Start: 04/05/22 07:28 Freq: Status: Active Protocol: Document 04/05/22 13:00 AMB (Rec: 04/06/22 07:30 AMB [id number]) Cervical Spine Range of Motion Cervical Spine Active Degrees Testing Position Sitting Flexion 70 Extension 60 Rotation Left 72 Rotation Right 45 Lateral Flexion Left 40 Lateral Flexion Right 40 PT-OP-M Strength Start: 04/05/22 07:28 Freq: Status: Active Protocol: Document 04/05/22 13:00 AMB (Rec: 04/06/22 07:30 AMB [id number]) Shoulder Strength Shoulder Manual Muscle Testing Right Comments WFL, flight engineer helicopter strength WFL PT-OP-Q Treatments Start: 04/05/22 07:28 Freq: Status: Active Protocol: Document 04/26/22 13:00 AMB (Rec: 04/26/22 13:49 AMB [id number]) Therapeutic Exercises Supine Exercises chin tuck Reps/Minutes 5x5 Sidelying Exercises open book Reps/Minutes 10x2 Sitting Exercises UT stretch Reps/Minutes 30x2 Other Exercises thread the needle Reps/Minutes 10 Manual Therapy Treatment Soft Tissue Mobilization suboccipital release Body Location neck Joint Mobilizations MWM right rotation Joint neck Reps/Duration 3x10 PT-OP-T Assessment and Plan Start: 04/05/22 07:28 Freq: Status: Active Protocol: Document 04/26/22 13:00 AMB (Rec: 04/26/22 13:49 AMB [id number]) Physical Therapy Assessment Assessment Summary Assessment 60 degrees rotation left and right at end of session, pt notes less pain. Still working on consistency with exercises, discussed benefit of morning vs afternoon exercises. Physical Therapy Plan Next Visit Focus/Plan Next Note Type Treatment Note Next Visit Plan Try cervical traction. Review chin tucks, pec stretch, cervical rotation, consider cervical stabilization next visit
--- NOTE | 2022-04-28 09:00 | PT-OP ANOTE ---
Pt called to cancel within 24 hr notice, declined to give reason unable attend PT appt.
--- NOTE | 2022-05-03 13:20 | PT-OP ANOTE ---
No show: LVM, asked pt to give us a call back and confirmed next appt.
--- NOTE | 2022-05-05 15:15 | PT-OP ANOTE ---
Pt cancelled today's appt due to feeling ill.
--- NOTE | 2022-05-12 15:35 | PT.OTN ---
Current Diagnoses Cervicalgia (05/12/22) Physical Therapy Treatment Note PT-OP-A Visit Information Start: 04/05/22 07:28 Freq: Status: Active Protocol: Document 05/12/22 14:33 AMB (Rec: 05/12/22 15:34 AMB [id number]) Out-Patient Physical Therapy Visit Information Visit Information Visit Type Treatment Note Visit Start Time 14:30 Visit Stop Time 15:15 Total Visit Minutes 45 Visit Number 7 PT-OP-B Current Condition Start: 04/05/22 07:28 Freq: Status: Active Protocol: Document 04/05/22 13:03 AMB (Rec: 04/05/22 13:19 AMB [id number]) Current Condition History of Current Condition Onset Date October Current Complaints neck pain History of Current Condition Rebuild deck in October and that worsened chronic neck pain. Stiffness in neck with rotation and sleeping are a big problem. Does have a history of shoulder seperation years ago, but denies numbness/tingling/radiating sx . Did have an X-ray in January, shows Degenerative changes most notable at C5-6 and C6-7. - moderate to severe at C6-C7 . Prior Functional Status Baseline Function- ADL's Independent Baseline Function- Mobility Independent Current Functional Impairments (Reported) Functional Limitations- ADL's limited sleeping, driving, reading, watching TV Personal Factors Other Personal Factors That May Effect Hypertension, back pain, Therapy/Recovery history R shoulder separation PT-OP-C Subjective Start: 04/05/22 07:28 Freq: Status: Active Protocol: Document 05/12/22 14:33 AMB (Rec: 05/12/22 15:34 AMB [id number]) OP-PT Subjective Patient Comments Patient Comments Pt reports neck stiffness this morning, is trying to use laptop less. Overall is doing HEP about 3-4x/week. PT-OP-J Posture/Palpation/Skin Start: 04/05/22 07:28 Freq: Status: Active Protocol: Document 04/05/22 13:00 AMB (Rec: 04/06/22 07:30 AMB [id number]) Posture Evaluation Comments Posture Comments forward shoulders, significant forward head Palpation Assessment Location One Palpation Location neck Palpation Findings Soft Tissue Tightness,Spasm, Muscle Guarding,Tenderness Palpation Details tension at R UT with R rotation, subocciptial muscle spasm PT-OP-K Range of Motion Start: 04/05/22 07:28 Freq: Status: Active Protocol: Document 04/05/22 13:00 AMB (Rec: 04/06/22 07:30 AMB [id number]) Cervical Spine Range of Motion Cervical Spine Active Degrees Testing Position Sitting Flexion 70 Extension 60 Rotation Left 72 Rotation Right 45 Lateral Flexion Left 40 Lateral Flexion Right 40 PT-OP-M Strength Start: 04/05/22 07:28 Freq: Status: Active Protocol: Document 04/05/22 13:00 AMB (Rec: 04/06/22 07:30 AMB [id number]) Shoulder Strength Shoulder Manual Muscle Testing Right Comments WFL, chip bin conveyor tender strength WFL PT-OP-Q Treatments Start: 04/05/22 07:28 Freq: Status: Active Protocol: Document 05/12/22 14:33 AMB (Rec: 05/12/22 15:34 AMB [id number]) Therapeutic Exercises Supine Exercises chin tuck Reps/Minutes 5x5 Sidelying Exercises open book Reps/Minutes 10x2 Sitting Exercises UT stretch Reps/Minutes 30x2 Manual Therapy Treatment Soft Tissue Mobilization suboccipital release Body Location neck PT-OP-R Modalities Start: 04/05/22 07:28 Freq: Status: Active Protocol: Document 05/12/22 14:30 AMB (Rec: 05/12/22 15:34 AMB [id number]) Spinal Traction Traction Treatment Cervical Method Mechanical Patient Position Supine Force Applied (Pounds) 30 Duration of Treatment (Minutes) 8 PT-OP-T Assessment and Plan Start: 04/05/22 07:28 Freq: Status: Active Protocol: Document 05/12/22 14:33 AMB (Rec: 05/12/22 15:34 AMB [id number]) Physical Therapy Assessment Goals Two Impairment Pain Short Term Goal (STG) Messi will sleep for 6 hours without waking due to neck pain. STG Duration 4 weeks Production Line Goal (LTG) Messi will work on his laptop for 1 hour with 2/10 neck pain or less. LTG Duration 8 weeks One Impairment ROM Short Term Goal (STG) Messi will improve his cervical rotation right to 60 degrees. STG Duration 4 weeks Production Line Goal (LTG) Messi will turn his head while driving without an increase in neck pain. LTG Duration 8 weeks Assessment Summary Assessment Messi felt traction was somewhat helpful. Would like to focus more on HEP that he can perform at home. Physical Therapy Plan Frequency and Duration Frequency of Treatment 2x/Week Duration of Treatment 8 weeks Plan of Care Start Date 04/05/22 Plan of Care End Date 05/31/22 Next Visit Focus/Plan Next Note Type Treatment Note Next Visit Plan Review latasha moreland stretch , cervical rotation, consider cervical stabilization next visit
--- NOTE | 2022-05-17 14:42 | PT-OP ANOTE ---
Pt DNS for today's appt. [employer]ATION [employer] MA[employer]GER called and left message regarding and could get a potential NS fee, please call >24 hrs to cancel appt. Reminded of next appt on 05/24 at 0815.
--- NOTE | 2022-06-10 13:33 | PT.OPDS ---
Current Diagnoses Cervicalgia (05/12/22) Visit Care Team Role Provider Type Tamika Borjas MD Attending Provider Physician Primary Care Provider Referring Provider Specialty: [facility] Address: [address] [place] [address], [address], [place], [address] Email: [email or web address] Visit Number Visit Number 7 Discharge Summary PT-OP-B Current Condition Start: 04/05/22 07:28 Freq: Status: Active Protocol: Document 04/05/22 13:03 AMB (Rec: 04/05/22 13:19 AMB [id number]) Current Condition History of Current Condition Onset Date October Current Complaints neck pain History of Current Condition Rebuild deck in October and that worsened chronic neck pain. Stiffness in neck with rotation and sleeping are a big problem. Does have a history of shoulder seperation years ago, but denies numbness/tingling/radiating sx . Did have an X-ray in January, shows Degenerative changes most notable at C5-6 and C6-7. - moderate to severe at C6-C7 . Prior Functional Status Baseline Function- ADL's Independent Baseline Function- Mobility Independent Current Functional Impairments (Reported) Functional Limitations- ADL's limited sleeping, driving, reading, watching TV Personal Factors Other Personal Factors That May Effect Hypertension, back pain, Therapy/Recovery history R shoulder separation PT-OP-C Subjective Start: 04/05/22 07:28 Freq: Status: Active Protocol: Document 05/12/22 14:33 AMB (Rec: 05/12/22 15:34 AMB [id number]) OP-PT Subjective Patient Comments Patient Comments Pt reports neck stiffness this morning, is trying to use laptop less. Overall is doing HEP about 3-4x/week. PT-OP-J Posture/Palpation/Skin Start: 04/05/22 07:28 Freq: Status: Active Protocol: Document 04/05/22 13:00 AMB (Rec: 04/06/22 07:30 AMB [id number]) Posture Evaluation Comments Posture Comments forward shoulders, significant forward head Palpation Assessment Location One Palpation Location neck Palpation Findings Soft Tissue Tightness,Spasm, Muscle Guarding,Tenderness Palpation Details tension at R UT with R rotation, subocciptial muscle spasm PT-OP-K Range of Motion Start: 04/05/22 07:28 Freq: Status: Active Protocol: Document 04/05/22 13:00 AMB (Rec: 04/06/22 07:30 AMB [id number]) Cervical Spine Range of Motion Cervical Spine Active Degrees Testing Position Sitting Flexion 70 Extension 60 Rotation Left 72 Rotation Right 45 Lateral Flexion Left 40 Lateral Flexion Right 40 PT-OP-M Strength Start: 04/05/22 07:28 Freq: Status: Active Protocol: Document 04/05/22 13:00 AMB (Rec: 04/06/22 07:30 AMB [id number]) Shoulder Strength Shoulder Manual Muscle Testing Right Comments WFL, reshipping clerk strength WFL PT-OP-T Assessment and Plan Start: 04/05/22 07:28 Freq: Status: Active Protocol: Document 06/10/22 13:31 AMB (Rec: 06/10/22 13:32 AMB [id number]) Physical Therapy Assessment Goals Two Impairment Pain Short Term Goal (STG) Messi will sleep for 6 hours without waking due to neck pain. STG Duration 4 weeks Nursing Home Goal (LTG) Messi will work on his laptop for 1 hour with 2/10 neck pain or less. LTG Duration 8 weeks One Impairment ROM Short Term Goal (STG) Messi will improve his cervical rotation right to 60 degrees. STG Duration MET Nursing Home Goal (LTG) Messi will turn his head while driving without an increase in neck pain. LTG Duration MET Assessment Summary Assessment Messi no showed 2 appointments therefore was called and discharged from clinic. Pt called back and was apologetic , but ok with discharge at this point and will continue with HEP. Physical Therapy Plan Discharge Physical Therapy Discharge Reasons No Longer Attending PT
== END 2022-06-15 12:28 ==
LOC: PHYS 14:30
PROVIDERS: PCP Student in an Organized Health Care Education/Training Program; Referring Provider Student in an Organized Health Care Education/Training Program; Visit Provider Student in an Organized Health Care Education/Training Program
DX: M54.2 Cervicalgia (principal)
CPT/HCPCS: 97012; 97110; 97140; 97161

== ENCOUNTER → 2023-03-09 10:49 | Outpatient (CLI) | payer OTHER, MEDICAID, SELFPAY ==
--- NOTE | 2023-03-09 | DI.MRI.S_ITS ---
PROCEDURE: MR CERVICAL SPINE WO CON INDICATIONS: CERVICALGIA TECHNIQUE: Noncontrast sagittal T1 spin echo and T2 fast spin echo, sagittal STIR, foraminal oblique sagittal T2 fast spin echo, and axial gradient echo or T2 fast spin echo through the cervical spine. COMPARISON: None. FINDINGS: Image quality: Excellent. Alignment and Curvature: Trace degenerative anterolisthesis of C7 on T1. Bone Marrow: Marrow demonstrates normal overall signal. Spinal Cord: Visualized spinal cord has normal size and signal. No cerebellar tonsillar herniation. Paraspinous Soft Tissues: No paravertebral masses. Prevertebral soft tissues are normal in thickness. C2-C3: No central canal stenosis. Bilateral facet hypertrophy, right greater than left. Right uncovertebral joint hypertrophy. Moderate to severe right foraminal narrowing with right foraminal C3 nerve root impingement. Moderate left foraminal narrowing. C3-C4: Diffuse posterior disc bulge abutting the cord. AP diameter of the canal is 9.5 mm. Bilateral uncovertebral joint hypertrophy. Left facet hypertrophy. Moderate right foraminal narrowing. Severe left foraminal narrowing, with left foraminal C4 nerve root impingement. C4-C5: Minimal disc bulge. AP diameter of the canal is 10.9 mm. Left facet hypertrophy. Moderate left foraminal narrowing with flattening deformity on the exiting left C5 nerve root. C5-C6: Posterior disc post osteophyte. AP diameter of the canal is 10.2 mm. Bilateral uncovertebral joint hypertrophy. Bilateral facet hypertrophy. Severe bilateral foraminal narrowing with bilateral foraminal C6 nerve root impingement. C6-C7: Mild to moderate chronic disc height loss. Posterior disc bulge. Prominent left uncovertebral joint hypertrophy. This results in impingement on the left C6 nerve root in the left lateral recess. Bilateral foraminal hypertrophy. No central canal stenosis. Severe right foraminal narrowing and moderate to severe left foraminal narrowing with bilateral foraminal C6 nerve root impingement. C7-T1: Trace anterolisthesis. Disc bulge. No canal stenosis. Bilateral facet hypertrophy. Bilateral moderate to severe foraminal narrowing with a degree of bilateral C8 nerve root impingement. IMPRESSION: 1. Multilevel facet arthropathy and uncovertebral joint hypertrophy. 2. Canal stenosis is mild at C3-C4 and borderline at C5-C6. 3. Significant multilevel foraminal narrowing as described above. Findings include moderate to severe right foraminal narrowing at C2-C3, severe left foraminal narrowing at C3-C4, severe bilateral foraminal narrowing at C5-C6, severe right and moderate to severe left foraminal narrowing at C6-C7, and bilateral moderate to severe foraminal narrowing at C7-T1. Dictated by: Stephen Gross M.D. on 03/09/2023 at 13:08 Approved by: Stephen Gross M.D. on 03/09/2023 at 13:18
== END ==
PROVIDERS: PCP Family Medicine; Referring Provider Family Medicine; Visit Provider Family Medicine
DX: M47.812 Spondylosis without myelopathy or radiculopathy, cervical region (principal); M48.02 Spinal stenosis, cervical region; M54.2 Cervicalgia; R74.8 Abnormal levels of other serum enzymes
CPT/HCPCS: 72141

== ENCOUNTER → 2023-03-16 06:55 | Outpatient (CLI) | payer OTHER, MEDICAID, SELFPAY ==
--- NOTE | 2023-03-16 06:57 | DI.US.S_ITS ---
PROCEDURE: US ABDOMEN LIMITED INDICATIONS: ELEVATED LIVER ENZYMES TECHNIQUE: Real-time scanning was performed of the abdominal and retroperitoneal organs, with image documentation. COMPARISON: [facility], , US ABDOMEN LIMITED, 07/14/2021, 9:43. FINDINGS: Liver: Increased liver echogenicity with posterior attenuation, most consistent with moderate to severe steatosis. Gallbladder: Unremarkable. Biliary ducts: Intrahepatic bile ducts are non-dilated. Extrahepatic bile duct caliber measures 4 mm. Normal is 6-7 mm or less in diameter, or 10 mm or less post-cholecystectomy. Pancreas: Visualized portions of the pancreas are sonographically normal. Spleen: Spleen is normal in size and homogeneous in echotexture. Miscellaneous: No free abdominal fluid. IMPRESSION: Hepatic steatosis. In the absence of alcohol use or other confounding factors, elevated LFTs may indicate non-alcoholic steatohepatitis (BRAGG). Dictated by: Messi Porter M.D. on 03/16/2023 at 9:00 Approved by: Messi Porter M.D. on 03/16/2023 at 9:01
== END ==
PROVIDERS: PCP Family Medicine; Referring Provider Family Medicine; Visit Provider Family Medicine
DX: R74.8 Abnormal levels of other serum enzymes (principal); K76.0 Fatty (change of) liver, not elsewhere classified; M54.2 Cervicalgia
CPT/HCPCS: 76705

== ENCOUNTER 2023-06-14 10:00 | Outpatient (RCR) | payer OTHER, MEDICAID, SELFPAY ==
--- NOTE | 2023-05-31 11:45 | PT.OIE ---
Current Diagnoses Spondylosis without myelopathy or radiculopathy, cervical region (05/31/23) Spinal stenosis, cervical region (05/31/23) Cervicalgia (05/31/23) Past Medical History (Last Updated 03/20/23 @ 10:37 by Merlin Boucher MD) Anxiety Cervical spondylosis Cervicalgia Eczema Elevated liver enzymes Essential tremor Foraminal stenosis of cervical region HTN (hypertension) Polyarthralgia Psoriasis Thrombocytopenia Past Surgical History (Last Updated 01/25/22 @ 14:41 by Margoth Galeano RN) H/O right inguinal hernia repair Visit Care Team Role Provider Type Sanam Monsivais MD Family Provider Physician Primary Care Provider Specialty: Family Practice Address: [address] [place] [address], [id number] Email: [email or web address] Merlin Boucher MD Attending Provider Physician Referring Provider Specialty: Anesthesiology Interventional Radiology Pain Management Address: [address] [place] [address], [id number] Email: [email or web address] Physical Therapy Initial Evaluation PT-OP-A Visit Information Start: 05/31/23 17:40 Freq: Status: Active Protocol: Document 05/31/23 11:00 DCW (Rec: 05/31/23 17:49 DCW [id number]) Out-Patient Physical Therapy Visit Information Visit Information Visit Type Initial Evaluation Visit Start Time 11:00 Visit Stop Time 11:45 Total Visit Minutes 45 Visit Number 1 Number of [employer] BLASTING Visits 0 Evaluation Information Evaluation Date 05/31/23 PT-OP-B Current Condition Start: 05/31/23 17:40 Freq: Status: Active Protocol: Document 05/31/23 11:00 DCW (Rec: 05/31/23 17:49 DCW [id number]) Current Condition History of Current Condition Onset Date Multi-year history Current Complaints Neck pain, stiffness History of Current Condition Pt is a 57 year old male presenting with a multi-year history of cervical pain and stiffness. Pt notes that it significantly worsened in October 2021 after spending a lot of time redoing his deck. Pt attended PT at this clinic one year ago for this same complaint, notes that it helped a lot, and he was able to continue performing his HEP for a while, and it was feeling better. Over time, he simply got less and less compliant with his exercises, and then finally misplaced his handouts and could no longer remember his routine, so he returns today in hopes to get back to being more mobile and more active, as well as developing a new routine. Since his last round of PT, he has had a cervical MRI, which showed some significant degenerative changes. Prior Treatments and Tests Cervical MRI: IMPRESSION: 1. Multilevel facet arthropathy and uncovertebral joint hypertrophy. 2. Canal stenosis is mild at C3-C4 and borderline at C5-C6. 3. Significant multilevel foraminal narrowing as described above. Findings include moderate to severe right foraminal narrowing at C2-C3, severe left foraminal narrowing at C3-C4, severe bilateral foraminal narrowing at C5-C6, severe right and moderate to severe left foraminal narrowing at C6-C7, and bilateral moderate to severe foraminal narrowing at C7-T1.: casey Gross M.D. on 03/09/2023 PT-OP-C Subjective Start: 05/31/23 17:40 Freq: Status: Active Protocol: Document 05/31/23 11:00 DCW (Rec: 05/31/23 17:55 [facility] [id number]) OP-PT Subjective Patient Comments Patient Comments With those results of my MRI, I know enough that I know I'm not really expecting complete relief per se, I'm more just looking for education, and I guess wisdom, develop a new routine that can keep me moving better. Patient Questionnaires Quick Dash- Upper Extremity Quick Dash UE Score 13.64% Quick Dash UE Impairment 1 to 19% Impaired (Score 1-19) OP-PT Pain Assessment Pain Assessment Grid Paper Pain Assessment Grid Completed Yes: See scan PT-OP-F Manual Assessment Start: 05/31/23 17:40 Freq: Status: Active Protocol: Document 05/31/23 11:00 DCW (Rec: 06/01/23 17:15 DCW [id number]) Manual Assessments Soft Tissue Assessment Soft Tissue Mobility Assessment Moderate tone with tenderness to palpation 2/4: Pain with wincing along Upper Traps, SCM , Scalenes, Suboccipitals, Levators, all R>L PT-OP-K Range of Motion Start: 05/31/23 17:40 Freq: Status: Active Protocol: Document 05/31/23 11:00 DCW (Rec: 06/01/23 17:15 DCW [id number]) Cervical Spine Range of Motion Cervical Spine Active Degrees Testing Position Sitting Flexion 43 Extension 45 Rotation Left 58 Rotation Right 62 Lateral Flexion Left 33 Lateral Flexion Right 35 ROM Limitations Soft Tissue Tightness,Bony Restriction,Muscle Tone PT-OP-L Special Tests Start: 05/31/23 17:40 Freq: Status: Active Protocol: Document 05/31/23 11:00 DCW (Rec: 06/01/23 17:15 DCW [id number]) Special Tests Cervical Spine Special Tests Passive Neck Flexion Test Results Negative Traction Test Results Negative Slump Test Results Negative Foraminal Compression Test Results Positive R PT-OP-Q Treatments Start: 05/31/23 17:40 Freq: Status: Active Protocol: Document 05/31/23 11:00 DCW (Rec: 05/31/23 17:55 DCW [id number]) Self-Care/Home Management Treatment Education Other Education Spent time today reprinting pt 's prior HEP handouts and reviewing exercises PT-OP-T Assessment and Plan Start: 05/31/23 17:40 Freq: Status: Active Protocol: Document 05/31/23 11:00 DCW (Rec: 06/01/23 17:25 DCW [id number]) Physical Therapy Assessment Rehab Potential Rehabilitation Potential Good Evaluation Complexity Number of Personal Factors/Comorbidities 1-2 Number of Body Systems Impaired 3 Clinical Presentation at Evaluation Evolving Goals Two Impairment Pt presents with cervical ROM restriction Usp Goal (LTG) Pt to increase pain-free cervical flexion and extension to at least 60? each in order to improve pt's ability to look into both high and low cabinets when looking for items in his kitchen. LTG Duration 07/31/23 One Impairment Pt does not have an appropriate home exercise program Short Term Goal (STG) Pt to be independent and compliant with an appropriate HEP STG Duration 07/01/23 Assessment Summary Assessment Pt presents with signs and symptoms consistent with referring diagnosis. Increased tone of cervical musculature, limited cervical ROM, and frequent pain (worse in the morning) are expects with described foraminal narrowing found in recent cervical MRI. Pt notes he has previously found good benefit from a consistent HEP provided by a physical therapist, however has lost his handouts and has not been performing any stretching to strengthening recently, leading to worsening symptoms. Patient and therapist are in agreement that he will likely benefit from a review of prior HEP, as well as new exercises added as needed, as well as some STM and joint mobilizations to improve overall mobility. Pt will likely do well with ~1x/ week until he feels more comfortable and compliant with home activities, and will likely do well with eventual transition to independent HEP. Physical Therapy Plan Frequency and Duration Frequency of Treatment 1x/Week Plan of Care Start Date 05/31/23 Plan of Care End Date 07/31/23 Therapeutic Interventions Therapeutic Interventions Home Exercise Program,Joint Mobilizations,Manual Therapy, Patient/Caregiver Education, Self-Care/Home Management,Soft Tissue Mobilization, Therapeutic Activities, Therapeutic Exercises Modalities Cold Pack/Ice Massage,Hot Packs,Traction- Mechanical, Ultrasound Next Visit Focus/Plan Next Note Type Treatment Note Next Visit Plan STM, Flexibility, cervical strengthening
--- NOTE | 2023-05-31 11:45 | PT.OPPOC ---
Physical, Occupational & Speech Therapy At [facility] Current Diagnoses Spondylosis without myelopathy or radiculopathy, cervical region (05/31/23) Spinal stenosis, cervical region (05/31/23) Cervicalgia (05/31/23) Visit Care Team Role Provider Type Sanam Monsivais MD Family Provider Physician Primary Care Provider Specialty: Family Practice Address: [address] [place] [address] [place], [address] Email: [email or web address] Merlin Boucher MD Attending Provider Physician Referring Provider Specialty: Anesthesiology Interventional Radiology Pain Management Address: [address] [place] [address], [address] Email: [email or web address] Plan Of Care PT-OP-T Assessment and Plan Start: 05/31/23 17:40 Freq: Status: Active Protocol: Document 05/31/23 11:00 DCW (Rec: 06/01/23 17:25 DCW [id number]) Physical Therapy Assessment Rehab Potential Rehabilitation Potential Good Evaluation Complexity Number of Personal Factors/Comorbidities 1-2 Number of Body Systems Impaired 3 Clinical Presentation at Evaluation Evolving Goals Two Impairment Pt presents with cervical ROM restriction Veterans Service Representative Goal (LTG) Pt to increase pain-free cervical flexion and extension to at least 60? each in order to improve pt's ability to look into both high and low cabinets when looking for items in his kitchen. LTG Duration 07/31/23 One Impairment Pt does not have an appropriate home exercise program Short Term Goal (STG) Pt to be independent and compliant with an appropriate HEP STG Duration 07/01/23 Assessment Summary Assessment Pt presents with signs and symptoms consistent with referring diagnosis. Increased tone of cervical musculature, limited cervical ROM, and frequent pain (worse in the morning) are expects with described foraminal narrowing found in recent cervical MRI. Pt notes he has previously found good benefit from a consistent HEP provided by a physical therapist, however has lost his handouts and has not been performing any stretching to strengthening recently, leading to worsening symptoms. Patient and therapist are in agreement that he will likely benefit from a review of prior HEP, as well as new exercises added as needed, as well as some STM and joint mobilizations to improve overall mobility. Pt will likely do well with ~1x/ week until he feels more comfortable and compliant with home activities, and will likely do well with eventual transition to independent HEP. Physical Therapy Plan Frequency and Duration Frequency of Treatment 1x/Week Plan of Care Start Date 05/31/23 Plan of Care End Date 07/31/23 Therapeutic Interventions Therapeutic Interventions Home Exercise Program,Joint Mobilizations,Manual Therapy, Patient/Caregiver Education, Self-Care/Home Management,Soft Tissue Mobilization, Therapeutic Activities, Therapeutic Exercises Modalities Cold Pack/Ice Massage,Hot Packs,Traction- Mechanical, Ultrasound Next Visit Focus/Plan Next Note Type Treatment Note Next Visit Plan STM, Flexibility, cervical strengthening Plan of Care Dates Plan of Care Start Date 05/31/23 Plan of Care End Date 07/31/23 Electronically Signed by: Ashuotsh Ch, PT 06/01/23 1518 If you are in agreement with this Plan of Care, please return a signed and dated copy. I have reviewed this Plan of Care and certify that the skilled therapy services above are required to meet the patient?s needs. Physician Signature Date Printed Name and Credentials Clinical Instructor Signature Printed Name and Credentials
--- NOTE | 2023-06-07 10:07 | PT.OTN ---
Current Diagnoses Spondylosis without myelopathy or radiculopathy, cervical region (06/07/23) Spinal stenosis, cervical region (06/07/23) Cervicalgia (06/07/23) Physical Therapy Treatment Note PT-OP-A Visit Information Start: 05/31/23 17:40 Freq: Status: Active Protocol: Document 06/07/23 09:30 DCW (Rec: 06/07/23 10:07 DCW [id number]) Out-Patient Physical Therapy Visit Information Visit Information Visit Type Treatment Note Visit Start Time 09:30 Visit Stop Time 10:00 Total Visit Minutes 30 Visit Number 2 Number of MAINTENANCE TRAINER Visits 0 Evaluation Information Evaluation Date 05/31/23 PT-OP-B Current Condition Start: 05/31/23 17:40 Freq: Status: Active Protocol: Document 05/31/23 11:00 DCW (Rec: 05/31/23 17:49 DCW [id number]) Current Condition History of Current Condition Onset Date Multi-year history Current Complaints Neck pain, stiffness History of Current Condition Pt is a 57 year old male presenting with a multi-year history of cervical pain and stiffness. Pt notes that it significantly worsened in October 2021 after spending a lot of time redoing his deck. Pt attended PT at this clinic one year ago for this same complaint, notes that it helped a lot, and he was able to continue performing his HEP for a while, and it was feeling better. Over time, he simply got less and less compliant with his exercises, and then finally misplaced his handouts and could no longer remember his routine, so he returns today in hopes to get back to being more mobile and more active, as well as developing a new routine. Since his last round of PT, he has had a cervical MRI, which showed some significant degenerative changes. Prior Treatments and Tests Cervical MRI: IMPRESSION: 1. Multilevel facet arthropathy and uncovertebral joint hypertrophy. 2. Canal stenosis is mild at C3-C4 and borderline at C5-C6. 3. Significant multilevel foraminal narrowing as described above. Findings include moderate to severe right foraminal narrowing at C2-C3, severe left foraminal narrowing at C3-C4, severe bilateral foraminal narrowing at C5-C6, severe right and moderate to severe left foraminal narrowing at C6-C7, and bilateral moderate to severe foraminal narrowing at C7-T1.: per Stephen Gross M.D. on 03/09/2023 PT-OP-C Subjective Start: 05/31/23 17:40 Freq: Status: Active Protocol: Document 06/07/23 09:30 DCW (Rec: 06/07/23 10:07 DCW [id number]) OP-PT Subjective Patient Comments Patient Comments There are good days and bad days, still worse when I wake up in the morning. Admits he has a ways to go with consistently performing HEP. PT-OP-F Manual Assessment Start: 05/31/23 17:40 Freq: Status: Active Protocol: Document 05/31/23 11:00 DCW (Rec: 06/01/23 17:15 DCW [id number]) Manual Assessments Soft Tissue Assessment Soft Tissue Mobility Assessment Moderate tone with tenderness to palpation 2/4: Pain with wincing along Upper Traps, SCM , Scalenes, Suboccipitals, Levators, all R>L PT-OP-K Range of Motion Start: 05/31/23 17:40 Freq: Status: Active Protocol: Document 05/31/23 11:00 DCW (Rec: 06/01/23 17:15 DCW [id number]) Cervical Spine Range of Motion Cervical Spine Active Degrees Testing Position Sitting Flexion 43 Extension 45 Rotation Left 58 Rotation Right 62 Lateral Flexion Left 33 Lateral Flexion Right 35 ROM Limitations Soft Tissue Tightness,Bony Restriction,Muscle Tone PT-OP-L Special Tests Start: 05/31/23 17:40 Freq: Status: Active Protocol: Document 05/31/23 11:00 DCW (Rec: 06/01/23 17:15 DCW [id number]) Special Tests Cervical Spine Special Tests Passive Neck Flexion Test Results Negative Traction Test Results Negative Slump Test Results Negative Foraminal Compression Test Results Positive R PT-OP-Q Treatments Start: 05/31/23 17:40 Freq: Status: Active Protocol: Document 06/07/23 09:30 DCW (Rec: 06/07/23 10:07 DCW [id number]) Therapeutic Exercises Sitting Exercises Upper Trap stretch Sitting Exercise Name Seated UT stretch Side bilateral Other Exercises Self STM Other Exercise Name Theracane, Tennis balls in sock Manual Therapy Treatment Soft Tissue Mobilization Paraspinals Body Location Cervical Paraspinals, UT, Scalenes Mobilization Type Sustained Pressure,Trigger Point Release Intensity/Depth Moderate Comments R>L PT-OP-T Assessment and Plan Start: 05/31/23 17:40 Freq: Status: Active Protocol: Document 06/07/23 09:30 DCW (Rec: 06/07/23 10:07 DCW [id number]) Physical Therapy Assessment Goals Two Impairment Pt presents with cervical ROM restriction [employer] Goal (LTG) Pt to increase pain-free cervical flexion and extension to at least 60? each in order to improve pt's ability to look into both high and low cabinets when looking for items in his kitchen. LTG Duration 07/31/23 One Impairment Pt does not have an appropriate home exercise program Short Term Goal (STG) Pt to be independent and compliant with an appropriate HEP STG Duration 07/01/23 Assessment Summary Assessment Fair response to STM today, pt notes some tenderness afterward. Pt felt good with upper trap stretch, interested in Theracane. Pt admits he knows he needs to do more at home. Already has extensive HEP from prior PT, working on getting back into a routine. Added UT stretch to ongoing HEP, don't want to add too much to HEP until he is more compliant with it. Physical Therapy Plan Frequency and Duration Frequency of Treatment 1x/Week Plan of Care Start Date 05/31/23 Plan of Care End Date 07/31/23 Therapeutic Interventions Therapeutic Interventions Home Exercise Program,Joint Mobilizations,Manual Therapy, Patient/Caregiver Education, Self-Care/Home Management,Soft Tissue Mobilization, Therapeutic Activities, Therapeutic Exercises Modalities Cold Pack/Ice Massage,Hot Packs,Traction- Mechanical, Ultrasound Next Visit Focus/Plan Next Note Type Treatment Note Next Visit Plan STM, Flexibility, cervical strengthening
--- NOTE | 2023-06-14 10:45 | PT.OTN ---
Current Diagnoses Spondylosis without myelopathy or radiculopathy, cervical region (06/14/23) Spinal stenosis, cervical region (06/14/23) Cervicalgia (06/14/23) Physical Therapy Treatment Note PT-OP-A Visit Information Start: 05/31/23 17:40 Freq: Status: Active Protocol: Document 06/14/23 10:01 SP (Rec: 06/14/23 10:50 SP [id number]) Out-Patient Physical Therapy Visit Information Visit Information Visit Type Treatment Note Visit Start Time 10:01 Visit Stop Time 10:45 Total Visit Minutes 44 Visit Number 3 Number of ARMATURE CONNECTOR Visits 1 Evaluation Information Evaluation Date 05/31/23 PT-OP-B Current Condition Start: 05/31/23 17:40 Freq: Status: Active Protocol: Document 05/31/23 11:00 DCW (Rec: 05/31/23 17:49 DCW [id number]) Current Condition History of Current Condition Onset Date Multi-year history Current Complaints Neck pain, stiffness History of Current Condition Pt is a 57 year old male presenting with a multi-year history of cervical pain and stiffness. Pt notes that it significantly worsened in October 2021 after spending a lot of time redoing his deck. Pt attended PT at this clinic one year ago for this same complaint, notes that it helped a lot, and he was able to continue performing his HEP for a while, and it was feeling better. Over time, he simply got less and less compliant with his exercises, and then finally misplaced his handouts and could no longer remember his routine, so he returns today in hopes to get back to being more mobile and more active, as well as developing a new routine. Since his last round of PT, he has had a cervical MRI, which showed some significant degenerative changes. Prior Treatments and Tests Cervical MRI: IMPRESSION: 1. Multilevel facet arthropathy and uncovertebral joint hypertrophy. 2. Canal stenosis is mild at C3-C4 and borderline at C5-C6. 3. Significant multilevel foraminal narrowing as described above. Findings include moderate to severe right foraminal narrowing at C2-C3, severe left foraminal narrowing at C3-C4, severe bilateral foraminal narrowing at C5-C6, severe right and moderate to severe left foraminal narrowing at C6-C7, and bilateral moderate to severe foraminal narrowing at C7-T1.: casey Gross M.D. on 03/09/2023 PT-OP-C Subjective Start: 05/31/23 17:40 Freq: Status: Active Protocol: Document 06/14/23 10:01 SP (Rec: 06/14/23 10:50 SP [id number]) OP-PT Subjective Patient Comments Patient Comments Pt reports started looking at his past HEP but wants to review so doing correctly and trying be self motivated to perform to decrease progression. PT-OP-F Manual Assessment Start: 05/31/23 17:40 Freq: Status: Active Protocol: Document 05/31/23 11:00 DCW (Rec: 06/01/23 17:15 DCW [id number]) Manual Assessments Soft Tissue Assessment Soft Tissue Mobility Assessment Moderate tone with tenderness to palpation 2/4: Pain with wincing along Upper Traps, SCM , Scalenes, Suboccipitals, Levators, all R>L PT-OP-K Range of Motion Start: 05/31/23 17:40 Freq: Status: Active Protocol: Document 05/31/23 11:00 DCW (Rec: 06/01/23 17:15 DCW [id number]) Cervical Spine Range of Motion Cervical Spine Active Degrees Testing Position Sitting Flexion 43 Extension 45 Rotation Left 58 Rotation Right 62 Lateral Flexion Left 33 Lateral Flexion Right 35 ROM Limitations Soft Tissue Tightness,Bony Restriction,Muscle Tone PT-OP-L Special Tests Start: 05/31/23 17:40 Freq: Status: Active Protocol: Document 05/31/23 11:00 DCW (Rec: 06/01/23 17:15 DCW [id number]) Special Tests Cervical Spine Special Tests Passive Neck Flexion Test Results Negative Traction Test Results Negative Slump Test Results Negative Foraminal Compression Test Results Positive R PT-OP-Q Treatments Start: 05/31/23 17:40 Freq: Status: Active Protocol: Document 06/14/23 10:01 SP (Rec: 06/14/23 10:50 SP [id number]) Therapeutic Exercises Supine Exercises CS AROM Supine Exercise Name rotation- in PT post manual Reps/Minutes x5 reps Comments felt more ROM chin tuck Supine Exercise Name reviewed HEP Reps/Minutes 5 SH x10 Comments good understanding post neck stretch Sidelying Exercises open book Sidelying Exercise Name reviewed past HEP Side bilateral Reps/Minutes x8 Comments cued head turn with arm, good pec stretch Sitting Exercises SNAG Rotation Sitting Exercise Name reviewed past HEP Side bilateral Equipment Used towel support Reps/Minutes 5 SH x3 Comments cued aware upright posture Upper Trap stretch Sitting Exercise Name Seated UT stretch Side bilateral Reps/Minutes 15 SH x3 Comments good feedback stretch Standing Exercises pec stretch Standing Exercise Name HEP reviewed Side bilateral Equipment Used corner Reps/Minutes 20 SH Comments cued ft fwd, good pec stretch Other Exercises quadruped Other Exercise Name 1. cat cow 2. thread needle Side bilateral Reps/Minutes x10, 3 SH each Comments good form Manual Therapy Treatment Soft Tissue Mobilization Paraspinals Body Location Cervical Paraspinals, UT, Scalenes, SCM Mobilization Type Sustained Pressure,Trigger Point Release Intensity/Depth Moderate Comments R>L Man and ed self application Self-Care/Home Management Treatment Education Other Education Ed postural awareness with sit , stand. NExt tx add body mechanics with lifting/carrying items. PT-OP-T Assessment and Plan Start: 05/31/23 17:40 Freq: Status: Active Protocol: Document 06/14/23 10:01 SP (Rec: 06/14/23 10:50 SP [id number]) Physical Therapy Assessment Goals Two Impairment Pt presents with cervical ROM restriction Residential Goal (LTG) Pt to increase pain-free cervical flexion and extension to at least 60? each in order to improve pt's ability to look into both high and low cabinets when looking for items in his kitchen. LTG Duration 07/31/23 One Impairment Pt does not have an appropriate home exercise program Short Term Goal (STG) Pt to be independent and compliant with an appropriate HEP STG Duration 07/01/23 Assessment Summary Assessment Pt fair response to manual STMs, reported tenderness over CS paraspinals. Cues for set up and proper for with past HEP review while using HOs for guidence. Time spent on carryover posture during sitting ergonomics and has elevated lap top to allow decrease strain on his neck. Next tx will review body mechanics with daily activities and I in HEP. Pt stated just wants to get an exercise routine to continue on his own. Physical Therapy Plan Frequency and Duration Frequency of Treatment 1x/Week Plan of Care Start Date 05/31/23 Plan of Care End Date 07/31/23 Therapeutic Interventions Therapeutic Interventions Home Exercise Program,Joint Mobilizations,Manual Therapy, Patient/Caregiver Education, Self-Care/Home Management,Soft Tissue Mobilization, Therapeutic Activities, Therapeutic Exercises Modalities Cold Pack/Ice Massage,Hot Packs,Traction- Mechanical, Ultrasound Next Visit Focus/Plan Next Note Type Treatment Note Next Visit Plan Review HEP for I, check spinal alignment and body mechanics with daily activity. Add cervical ext SNAGS and proper use of theracane and ball on wall for self STMs. POC: STM, Flexibility, cervical strengthening
--- NOTE | 2023-06-26 09:42 | PT.OPDS ---
Current Diagnoses Spondylosis without myelopathy or radiculopathy, cervical region (06/14/23) Spinal stenosis, cervical region (06/14/23) Cervicalgia (06/14/23) Visit Care Team Role Provider Type Sanam Monsivais MD Family Provider Physician Primary Care Provider Specialty: Family Practice Address: [address] [place] [address], [facility] [place], [address] Email: [email or web address] Merlin Boucher MD Attending Provider Physician Referring Provider Specialty: Anesthesiology Interventional Radiology Pain Management Address: [address] [place] [address], [id number] Email: [email or web address] Visit Number Visit Number 3 Discharge Summary PT-OP-B Current Condition Start: 05/31/23 17:40 Freq: Status: Active Protocol: Document 05/31/23 11:00 DCW (Rec: 05/31/23 17:49 DCW [id number]) Current Condition History of Current Condition Onset Date Multi-year history Current Complaints Neck pain, stiffness History of Current Condition Pt is a 57 year old male presenting with a multi-year history of cervical pain and stiffness. Pt notes that it significantly worsened in October 2021 after spending a lot of time redoing his deck. Pt attended PT at this clinic one year ago for this same complaint, notes that it helped a lot, and he was able to continue performing his HEP for a while, and it was feeling better. Over time, he simply got less and less compliant with his exercises, and then finally misplaced his handouts and could no longer remember his routine, so he returns today in hopes to get back to being more mobile and more active, as well as developing a new routine. Since his last round of PT, he has had a cervical MRI, which showed some significant degenerative changes. Prior Treatments and Tests Cervical MRI: IMPRESSION: 1. Multilevel facet arthropathy and uncovertebral joint hypertrophy. 2. Canal stenosis is mild at C3-C4 and borderline at C5-C6. 3. Significant multilevel foraminal narrowing as described above. Findings include moderate to severe right foraminal narrowing at C2-C3, severe left foraminal narrowing at C3-C4, severe bilateral foraminal narrowing at C5-C6, severe right and moderate to severe left foraminal narrowing at C6-C7, and bilateral moderate to severe foraminal narrowing at C7-T1.: casey Gross M.D. on 03/09/2023 PT-OP-C Subjective Start: 05/31/23 17:40 Freq: Status: Active Protocol: Document 06/14/23 10:01 SP (Rec: 06/14/23 10:50 SP [id number]) OP-PT Subjective Patient Comments Patient Comments Pt reports started looking at his past HEP but wants to review so doing correctly and trying be self motivated to perform to decrease progression. PT-OP-F Manual Assessment Start: 05/31/23 17:40 Freq: Status: Active Protocol: Document 05/31/23 11:00 DCW (Rec: 06/01/23 17:15 DCW [id number]) Manual Assessments Soft Tissue Assessment Soft Tissue Mobility Assessment Moderate tone with tenderness to palpation 2/4: Pain with wincing along Upper Traps, SCM , Scalenes, Suboccipitals, Levators, all R>L PT-OP-K Range of Motion Start: 05/31/23 17:40 Freq: Status: Active Protocol: Document 05/31/23 11:00 DCW (Rec: 06/01/23 17:15 DCW [id number]) Cervical Spine Range of Motion Cervical Spine Active Degrees Testing Position Sitting Flexion 43 Extension 45 Rotation Left 58 Rotation Right 62 Lateral Flexion Left 33 Lateral Flexion Right 35 ROM Limitations Soft Tissue Tightness,Bony Restriction,Muscle Tone PT-OP-L Special Tests Start: 05/31/23 17:40 Freq: Status: Active Protocol: Document 05/31/23 11:00 DCW (Rec: 06/01/23 17:15 DCW [id number]) Special Tests Cervical Spine Special Tests Passive Neck Flexion Test Results Negative Traction Test Results Negative Slump Test Results Negative Foraminal Compression Test Results Positive R PT-OP-T Assessment and Plan Start: 05/31/23 17:40 Freq: Status: Active Protocol: Document 06/26/23 09:40 DCW (Rec: 06/26/23 09:41 DCW [id number]) Physical Therapy Assessment Goals Two Impairment Pt presents with cervical ROM restriction Compression Molding Machine Setter Goal (LTG) Pt to increase pain-free cervical flexion and extension to at least 60? each in order to improve pt's ability to look into both high and low cabinets when looking for items in his kitchen. LTG Duration 07/31/23 One Impairment Pt does not have an appropriate home exercise program Short Term Goal (STG) Pt to be independent and compliant with an appropriate HEP STG Duration 07/01/23 Assessment Summary Assessment Pt phoned clinic 06/26/23 to request discharge, reports he is working with Dr Boucher and requires no further skilled PT at this time. Pt will be discharged. Physical Therapy Plan Frequency and Duration Frequency of Treatment 1x/Week Plan of Care Start Date 05/31/23 Plan of Care End Date 07/31/23 Therapeutic Interventions Therapeutic Interventions Home Exercise Program,Joint Mobilizations,Manual Therapy, Patient/Caregiver Education, Self-Care/Home Management,Soft Tissue Mobilization, Therapeutic Activities, Therapeutic Exercises Modalities Cold Pack/Ice Massage,Hot Packs,Traction- Mechanical, Ultrasound Discharge Physical Therapy Discharge Reasons Patient Request Next Visit Focus/Plan Next Note Type Discharge Summary
== END 2023-06-27 13:58 | disposition home or self-care (01) ==
LOC: PHYS 10:00
PROVIDERS: Absent Provider Family Medicine; Family Provider Family Medicine; PCP Family Medicine; Referring Provider Anesthesiology; Visit Provider Anesthesiology
DX: M47.812 Spondylosis without myelopathy or radiculopathy, cervical region (principal); M54.2 Cervicalgia; M48.02 Spinal stenosis, cervical region
CPT/HCPCS: 97110; 97140; 97162; 97535

== ENCOUNTER → 2023-11-24 08:57 | Outpatient (ROUT) | payer OTHER, MEDICAID, SELFPAY ==
[2023-11-24 09:14] LABS: INR 1.1 (0.9-1.3); Prothrombin Time 12.5 SECONDS (9.4-12.5)
== END ==
PROVIDERS: Family Provider Family Medicine; PCP Family Medicine; Visit Provider Family Medicine
DX: R74.8 Abnormal levels of other serum enzymes (principal)
CPT/HCPCS: 85610

== ENCOUNTER → 2024-03-22 10:12 | Outpatient (CLI) | payer OTHER, MEDICAID, SELFPAY ==
--- NOTE | 2024-03-22 | DI.US.S_ITS ---
PROCEDURE: US ABDOMEN LIMITED INDICATIONS: Abnormal levels of other serum enzymes TECHNIQUE: Real-time focused scanning was performed of the abdomen, with image documentation. COMPARISON: [facility], US, US ABDOMEN LIMITED, 03/16/2023, 7:05. FINDINGS: The liver demonstrates normal size. The liver demonstrates generalized moderate to prominent increased echogenicity, with coarsening. This decreases ultrasound sensitivity for detection of hepatic masses. No findings of gallstones or sludge are seen. The gallbladder wall is not thickened, measuring 3 mm or less. No specific pericholecystic fluid is seen. The sonographic Menendez sign is negative. There is no biliary dilatation, the common bile duct measures 3 mm. No significant pancreatic abnormality is seen on these images. IMPRESSION: Enlarged, hyperechoic liver, which is attributed to fatty infiltration. However, differential diagnosis includes cirrhosis and fibrosis in this patient. Dictated by: Delta French M.D. on 03/22/2024 at 10:15 Approved by: Delta French M.D. on 03/22/2024 at 10:16
== END ==
PROVIDERS: Family Provider Family Medicine; PCP Family Medicine; Referring Provider Family Medicine; Visit Provider Family Medicine
DX: R74.8 Abnormal levels of other serum enzymes (principal); R16.0 Hepatomegaly, not elsewhere classified; E78.2 Mixed hyperlipidemia; F10.20 Alcohol dependence, uncomplicated
CPT/HCPCS: 76705

== ENCOUNTER → 2024-12-05 10:04 | Outpatient (CLI) | payer OTHER, MEDICAID, SELFPAY ==
--- NOTE | 2024-12-05 10:07 | DI.RAD.S_ITS ---
PROCEDURE: XR CERVICAL SPINE 4V OR 5V INDICATIONS: NECK PAIN TECHNIQUE: 5 views of the cervical spine acquired. COMPARISON: [facility], CR, XR CERVICAL SPINE 2V OR 3V, 02/09/2022, 9:00. FINDINGS: Overall moderate spondylotic changes with disc space height loss, arthropathy, and osteophytes, similar in appearance compared to 2021. Disc space height loss most significant at C5-C6 and C6-C7. On oblique views, suspected bilateral neural foraminal narrowing is seen, most significant at C5-C6 and C6-C7. No acute fracture or traumatic subluxation. Similar lung apex opacity versus scarring. No pathologic prevertebral soft tissue swelling. IMPRESSION: Moderate spondylosis as described above. If there is high concern for further derangement, consider MRI evaluation. Dictated by: Ryan Urban M.D. on 12/05/2024 at 10:50 Approved by: Ryan Urban M.D. on 12/05/2024 at 10:52
== END ==
PROVIDERS: Family Provider Family Medicine; PCP Family Medicine; Referring Provider Family Medicine; Visit Provider Family Medicine
DX: M48.02 Spinal stenosis, cervical region (principal); M47.812 Spondylosis without myelopathy or radiculopathy, cervical region
CPT/HCPCS: 72050

== ENCOUNTER → 2025-03-13 09:30 | Outpatient (CLI) | payer OTHER, SELFPAY ==
--- NOTE | 2025-03-13 | DI.CT.S_ITS ---
PROCEDURE: CT ABDOMEN PELVIS W CON INDICATIONS: Umbilical hernia wo obstruction TECHNIQUE: After the administration of intravenous contrast, axial sections acquired from the lung bases to the pubic symphysis. Coronal and sagittal reformats were performed. For radiation dose reduction, the following was used: automated exposure control, adjustment of mA and/or kV according to patient size. COMPARISON: None. FINDINGS: Image quality: Diagnostic. Lower Chest: No significant findings. ABDOMEN: Liver: No solid mass. Hepatic steatosis. Gallbladder: No radiopaque gallstones or wall thickening. Biliary ducts: No biliary dilation. Pancreas: Homogeneous enhancement without focal lesions or pancreatic ductal dilatation. No peripancreatic inflammation or organized fluid collections. Spleen: Size is within normal limits. Adrenal Glands: No adrenal nodules. Kidneys and Ureters: There is a horseshoe kidney. No hydronephrosis or suspicious mass lesion. No renal cystic lesion which requires follow-up. Bilateral ureters are normal in course and caliber. The the the the the Stomach and Bowel: Normal colonic caliber, without significant wall thickening. No evidence for small bowel obstruction or associated inflammatory changes. Normal appendix. Peritoneum: No abnormal intraperitoneal fluid. No free air. Ventral Wall: There is a fat containing umbilical hernia measuring 2.8 x 2.8 cm in axial cross-sectional dimension (81/series 2) with wall defect measuring 1.5 cm. No acute inflammatory changes. Abdominal Nodes: No retroperitoneal or mesenteric adenopathy by size criteria. Vessels: Aorta and inferior vena cava are normal in size. PELVIS: Pelvic Organs: Unremarkable. Bladder: No bladder wall thickening, accounting for underdistention. Pelvic Nodes: No enlarged lymph nodes. Miscellaneous: No inguinal hernias are seen. Bones: No aggressive osseous abnormality. No acute vertebral body compression fractures. Multilevel spondylitic changes throughout the imaged spine. No suspicious osseous lesions. IMPRESSION: CT abdomen and pelvis without acute abnormalities. There is a 2.8 x 2.8 cm containing umbilical hernia without acute inflammation. Hepatic steatosis. Incidental note of a horseshoe kidney. No evidence for obstructive uropathy. Dictated by: Flynn Clemente M.D. on 03/13/2025 at 13:52 Approved by: Flynn Clemente M.D. on 03/13/2025 at 13:58
== END ==
LOC: CT 09:30
PROVIDERS: Family Provider Family Medicine; PCP Family Medicine; Referring Provider Family Medicine; Visit Provider Family Medicine
DX: K42.9 Umbilical hernia without obstruction or gangrene (principal); Q63.1 Lobulated, fused and horseshoe kidney; K76.0 Fatty (change of) liver, not elsewhere classified; R10.33 Periumbilical pain
CPT/HCPCS: 74177; Q9967

== ENCOUNTER 2025-04-18 09:51 | Day surgery (SDC) | payer OTHER, SELFPAY ==
[2025-04-16 10:19] VITALS: BMI 31.1
[2025-04-18] MEDS: LACTATED RINGERS 1,000 ML 42 ML IV (10:07)
[2025-04-18] MEDS: ACETAMINOPHEN 325 MG TABLET 975 MG PO (10:10)
[2025-04-18 10:18] VITALS: BP 185/107; PULSE 69; RESP 24; TEMP 36.6; O2SAT 96; BMI 30.5
--- NOTE | 2025-04-18 12:36 | PM.PREOP ---
Pre-operative Note Interval Note History & Physical reviewed/Exam performed by Physician: Yes Changes to H&P: No ASA Class (for procedural sedation): I
[2025-04-18] MEDS: CEFAZOLIN 2 GM/100 ML PREMIX 100 ML IV (12:54)
--- NOTE | 2025-04-18 13:03 | SUR.OPER ---
Supine on padded OR bed, head on pillow, arms secured on padded arm boards at <90 degrees abduction, legs uncrossed, safety belt at thigh, tape over blanket over lower legs.
[2025-04-18] MEDS: BUPIVACAINE 0.25% W/ EPI 30 ML VIAL INJ (13:13)
[2025-04-18 13:30] VITALS: BP 151/83; PULSE 67; RESP 18; TEMP 36.6; O2SAT 95
--- NOTE | 2025-04-18 13:31 | PM.OP.1 ---
Operative Date/Time/Diagnoses Date of procedure: 04/18/25 Time of procedure: 13:32 Pre-op diagnosis: Incarcerated umbilical hernia Post-op diagnosis: same Procedure & Clinicians Procedure: Umbilical hernia repair with mesh Same procedure(s) as scheduled: Yes Indications: 59yo M with incarcerated umbilical hernia Surgeon: Madi Latif Medical Technologist Microbiology: Nazario Simon Anesthesia Type: General Operative Notes Findings: Umbilical hernia incarcerated with omental fat, no bowel Closure Type: primary Specimen(s): none sent Applied: none Estimated Blood Loss (mL): 5 Blood products transfused: none Procedure in detail: After informed consent and satisfactory general anesthesia the abdomen was shaved, prepped and draped in the usual sterile manner. Surgical time-out was performed to ensure we had the proper patient, position and procedure with all team members in agreement. We injected 0.25% Marcaine with epinephrine, total of 30 cc. The skin and subcutaneous tissues were injected and the remainder was injected into the musculature at the end of the procedure. The skin incision was made with a #15 blade knife and continued through the skin and subcutaneous tissues. Hemostasis was achieved with cautery. The subcutaneous plane around the hernia and the umbilical stalk was bluntly dissected. The umbilical stalk was mobilized off of the fascia. The hernia defect measured approximately 2 cm. I selected a Bard 6 cm circular mesh that was able to be placed beneath the fascia but anterior to the peritoneum. The resulting defect was closed using 0 Ethibond interrupted suture. The umbilical stalk was reumbilicated using 3-0 Vicryl interrupted suture x2. Hemostasis was excellent. The skin incision was closed using 4-0 Monocryl in a subcuticular manner. Dermabond glue was applied as a final dressing. The estimated blood loss was minimal. The instrument, sponge and needle counts were all correct x2. The patient tolerated the procedure well and transported to the recovery area in stable condition. Complications: none Post-operative Condition: stable Disposition: PACU Plan for aftercare: PACU then home
[2025-04-18 13:35] VITALS: BP 166/93; PULSE 66; RESP 19; O2SAT 95
[2025-04-18 13:40] VITALS: BP 156/85; PULSE 69; RESP 17; O2SAT 94
[2025-04-18 13:45] VITALS: BP 164/97; PULSE 74; RESP 16; O2SAT 96
[2025-04-18 13:50] VITALS: BP 166/95; PULSE 65; RESP 16; O2SAT 96
[2025-04-18] MEDS: ONDANSETRON 4 MG/2 ML INJ IV (13:51)
[2025-04-18] MEDS: OXYCODONE IR 5 MG TABLET PO (13:52)
== END 2025-04-18 14:16 | disposition home or self-care (01) ==
PROVIDERS: PCP Family Medicine; Referring Provider Surgery; Visit Provider Surgery
PROC: (CPT 49591; principal; 2025-04-18 11:45)
DX: K42.9 Umbilical hernia without obstruction or gangrene (principal)
CPT/HCPCS: 49591; C1781; J0690; J1100; J1885; J2250; J2405; J2704; J3010

== ENCOUNTER → 2025-07-18 07:30 | Outpatient (CLI) | payer OTHER, SELFPAY ==
--- NOTE | 2025-07-18 07:32 | DI.US.S_ITS ---
PROCEDURE: US ABDOMEN LIMITED INDICATIONS: elevated liver enzymes TECHNIQUE: Real-time scanning was performed of the abdominal and retroperitoneal organs, with image documentation. COMPARISON: [facility], CT, CT ABDOMEN PELVIS W CON, 03/13/2025, 10:43. [facility], US, US ABDOMEN LIMITED, 03/22/2024, 10:28. [facility], US, US ABDOMEN LIMITED, 03/16/2023, 7:05. FINDINGS: Liver: Liver is upper limits of normal in size and diffusely increased in echogenicity with posterior acoustic attenuation.. Gallbladder: No gallstones. No wall thickening. No pericholecystic edema. Negative sonographic Menendez's sign. Biliary ducts: Intrahepatic bile ducts are non-dilated. Extrahepatic bile duct caliber measures 6 mm. Normal is 6-7 mm or less in diameter, or 10 mm or less post-cholecystectomy. Pancreas: Visualized portions of the pancreas are sonographically normal. 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 No free abdominal fluid. IMPRESSION: 1. Diffusely increased hepatic echogenicity is nonspecific, but most commonly encountered in the setting of hepatic steatosis. However, other causes of hepatocellular disease are not excluded. Recommend clinical correlation. 2. 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 Approved by: Casimiro Arroyo M.D. on 07/18/2025 at 8:46
== END ==
LOC: US 07:30
PROVIDERS: PCP Family Medicine; Referring Provider Family Medicine; Visit Provider Family Medicine
DX: R74.8 Abnormal levels of other serum enzymes (principal); F10.20 Alcohol dependence, uncomplicated; N28.1 Cyst of kidney, acquired; Q63.1 Lobulated, fused and horseshoe kidney
CPT/HCPCS: 76705